=== PATIENT | male | born 1985 | race Caucasian/White ===

== ENCOUNTER 2020-02-25 21:56 | Emergency (ER) | payer OTHER, SELFPAY ==
[2020-02-25 22:02] VITALS: PULSE 83; RESP 16; TEMP 36.9; O2SAT 98; BMI 24.7
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
--- NOTE | 2020-02-25 22:56 | PC.NURSE ---
pt was seen by , was ready for discharge and then danis screaming and yelling get me the fucking doctor . pt was approached by staff and continued to yell and swear and then attempted to remove a rack from the wall. security to bedside to escort pt from ER. Pt swearing on exit
== END 2020-02-25 23:00 | disposition home or self-care (01) ==
LOC: HO.ED 22:54
PROVIDERS: Emergency Provider Internal Medicine
DX: K64.4 Residual hemorrhoidal skin tags (principal)
CPT/HCPCS: 99283

== ENCOUNTER 2023-02-01 22:52 | Emergency (ER) | payer MEDICAID, SELFPAY ==
[2023-02-01 23:02] VITALS: BMI 22.2
--- NOTE | 2023-02-01 23:04 | ED_ITS ---
HPI - Overdose General Chief Complaint: Overdose Stated Complaint: drug use Time Seen by Provider: 02/01/23 22:57 History of Present Illness HPI Narrative: Patient is a 37-year-old male with a history polysubstance abuse. Admits to using PCP tonight. Subsequently family called the ambulance and patient was sent to the emergency department for further evaluation. He denies any suicidal homicidal ideation he has no complaints. Related Data Previous Rx's Medication Instructions Recorded hydrocortisone acetate 25 mg 25 mg [place] BID #12 ea 02/25/20 rectal suppository (Anusol-HC) Allergies Allergy/AdvReac Type Severity Reaction Status Date / Time No Known Allergies Allergy Unverified 12/06/22 15:06 [No Known Allergies*] Review of Systems Review of Systems: Positive PCP use [facility] Past Medical History Attestation statement: The following information was validated with the patient. Social History Social History Use of substances other than those prescribed or required for medical reasons: Yes Substance Use Type: Amphetamines Substance Use Frequency: Socially Advance Directives: No Advance Directives Information Provided: No Physical Exam Vital Signs: Vital Signs: Last Vital Signs Temp 98.2 F 02/01/23 23:05 Pulse 110 H 02/01/23 23:05 Resp 17 02/01/23 23:05 BP 129/87 02/01/23 23:05 Pulse Ox 97 02/01/23 23:05 O2 Del Method Room Air 02/01/23 23:05 BMI result Body Mass Index 22.2 Appearance: Alert. Oriented X3. No acute distress. Eyes: Pupils equal, round and reactive to light. ENT: Pharynx normal. Neck: Normal inspection. Neck supple. No lymph nodes noted. No crepitus CVS: Normal heart rate and rhythm. Pulses normal. Normal S1 and S2 Respiratory: No respiratory distress. Breath sounds normal. No Wheezing. No rales Abdomen: Soft and nontender. No rigidity. No distention. good BS x4 Skin: Skin warm and dry. Normal skin color. Normal skin turgor. Extremities: No lower extremity edema. Neurovascular intact to all extremities. No Lacerations. No Rash Neuro: Oriented X 3. No motor deficit. No sensory deficit. Moving all extermities. No slurred speech Medical Decision Making Medical Decision Making MDM Narrative: Patient admits to using PCP. Monitor in the emergency department for about 2 hours. He was awake alert when he came in. He has is still in no distress. Had a full meal here in the emergency department. His sugar was 166 is no evidence of hypoglycemia. Patient denies suicidal homicidal ideation. Use of drugs for recreational reasons. Wants to go home. Wants to leave. He is awake alert is understand his situation will discharge patient home. Explained the patient the need to stop using PCP. Differential Diagnosis Differential Diagnoses: The differential diagnosis associated with the presentation includes Polysubstance abuse Lab Data [facility] Lab Attestation statement: I reviewed the patient's lab results. Labs: Lab Results 02/01/23 Range/Units 23:03 POC Glucose 166 H (60-115) mg/dL Prescription Management No additional medication was given Chronic Conditions Polysubstance abuse Social Determinants Patient?s care significantly limited by Social Determinants of Health including: Alcoholism and drug addiction in family and Problems related to primary support group Discharge Plan Discharge Clinical Impression: Polysubstance (excluding opioids) dependence Patient Disposition: Home, Self-Care Instructions: Polysubstance Abuse (ED) Prescriptions: No Action hydrocortisone acetate [Anusol-HC] 25 mg suppository 25 mg [place] BID Qty: 12 0RF Referrals: Physician,Unknown J [Primary Care Provider] - (Please follow-up with your physician. Please stop using recreational drugs.)
[2023-02-01 23:05] VITALS: BP 129/87; PULSE 110; RESP 17; TEMP 36.8; O2SAT 97
[2023-02-01 23:07] LABS: Glucose, Whole Blood 166 mg/dL (60-115)
--- NOTE | 2023-02-01 23:15 | PC.NURSE ---
pt calm cooperative at this time and A/OX4 . Provider at bedside and state that if his mom can potato picker he can be discharged. Security at bedside, for search.
--- NOTE | 2023-02-01 23:35 | PC.NURSE ---
belongings in [place]
--- NOTE | 2023-02-02 00:20 | PC.NURSE ---
Pt calm and cooperative, eating a sandwich at this time
== END 2023-02-02 00:38 | disposition home or self-care (01) ==
PROVIDERS: Emergency Provider Emergency Medicine Emergency Medical Services
DX: T40.991A Poisoning by other psychodysleptics [hallucinogens], accidental (unintentional), initial encounter (principal); Y92.9 Unspecified place or not applicable; F16.20 Hallucinogen dependence, uncomplicated; F19.20 Other psychoactive substance dependence, uncomplicated
CPT/HCPCS: 82947; 99284

== ENCOUNTER 2023-04-10 02:37 | Emergency (ER) | payer MEDICAID, SELFPAY ==
[2023-04-10 03:16] VITALS: BP 169/102; PULSE 74; RESP 16; TEMP 37.2; O2SAT 98
--- OUTSIDE RECORDS SUMMARY | 2023-04-10 06:01 | XMS_ITS | Continuity of Care Document ---
Author Name Unknown Organization [facility] Teri Marie [facility] Address [address] [place] [address]- Care Team Providers Care Human Resources Safety Manager Name Role Phone Not on Staff, PCP Primary Care Physician Unavail able [id number] Date(s): 05/03/20 - 06/02/20 [facility] Teri Marie [facility] [address] [place] [address]- Allergies, Adverse Reactions, Alerts Substance Reaction Severity Status NKA Active Medications Protonix 40 mg oral delayed release tablet 1 tablet = 40 mg, By Mouth, Daily, # 30 tablet, 0 Refills, Maintenance, 04/07/20 9:46:00 EST, EC Tablet Start Date: 04/07/20 Status: Ordered Problem List Condition Effective Dates Status Health Status Inform ant Bowel perforation(Confirmed) Active Social History Social History Type Response Smoking Status Never (less than 100 in lifetime) entered on: 04/05/20 Sex
--- OUTSIDE RECORDS SUMMARY | 2023-04-10 06:01 | XMS_ITS | Continuity of Care Document ---
Author Name Unknown Organization [facility] Address [address] [place] [address]- Care Team Providers Care Training And Development Professional Name Role Phone Not on Staff, PCP Primary Care Physician Unavail able [place] [facility] [place] 03/19[place] - 03/20/[address] [address]- Encounter Diagnosis Constipated(Final) - 03/19/21 Ileus(Final) - 03/19/21 Discharge Disposition: A-D/C [facility], [facility], or [facility] Attending Physician: Brittany Strickland MD, Brianna Admitting Physician: Alexis DURANT, Anastasia Referring Physician: Not on Staff, Referring MD Allergies, Adverse Reactions, Alerts No Known Allergies Immunizations Not Given Vaccine Date Status Refusal Reason influenza virus vaccine, inactivated 03/20/21 Not Given Patient Refuses Medications acetaminophen 325 mg oral tablet 650 mg, By Mouth, Every 4 hours, PRN, Refills 0, Maintenance, Pain , Mild, 03/14/21 10:51:00 EST, Partial fill upon patient request if the prescription is for a schedule II opioid drug. Start Date: 03/14/21 Status: Ordered buprenorphine-naloxone 4 mg-1 mg sublingual film 2 film, Sublingual, Daily, 0 Refills, Maintenance, 03/20/21 9:58:00 EST, Film, Partial fill upon patient request if the prescription is for a schedule II opioid drug. Start Date: 03/20/21 Status: Ordered polyethylene glycol 3350 oral powder for reconstitution = 17 Gm, By Mouth, Daily, for 7 days, dissolve in water before taking, # 119 Gm, 0 Refills, Acute 03/27/21 9:57:00 EST, 03/20/21 9:57:00 EST, REC Powder, [facility], Partial fill upon patient request if the prescription is for a schedule... Start Date: 03/20/21 Stop Date: 03/27/21 Status: Ordered Senna 8.6 mg oral tablet 17.2 mg, 2, tablet, By Mouth, Daily, for 7 days, # 14 tablet, Refills 0, Tot. Refills 0, Acute, 03/27/21 9:57:00 EST, 03/20/21 9:57:00 EST, Route to Pharmacy Electronically, [facility] Tablet, Partial fill upon patient request if the pres... Start Date: 03/20/21 Stop Date: 03/27/21 Status: Ordered Problem List Condition Effective Dates Status Health Status Inform ant Bowel perforation(Confirmed) Active Polysubstance abuse(Confirmed) Active SBO - Small bowel obstruction(Confirmed) Active Procedures Procedure Date Related Diagnosis Body Site Status Laparoscopy, surgical, enter olysis (freeing of intestinal adhesion) (separate procedure) 03/13/21 Completed Enterectomy, resection of sm all intestine; single resection and anastomosis 02/23/12 Completed Results Radiology Reports * Exam Date Time Procedure Performing Provider Status 03/20/21 9:52 AM Abdomen AP Delvis Downing; Chucho (Eva ified) Notes: (Abdomen AP) Reason For Exam: Distention;r/o SBO RESULT: XR Abdomen AP XR Abdomen AP supine view INDICATION/CLINICAL QUESTION: Abdominal distention COMPARISON: Yesterday an several prior FINDINGS: Moderate stool retention but otherwise normal bowel gas pattern. No evidence of obstruction. No evidence of pneumoperitoneum. Multiple surgical staple lines left mid abdomen grossly unchanged. Normal bones. IMPRESSION: Moderate stool retention but otherwise normal. No evidence of obstruction. WSN: [id number] Ordering Physician: Brianna Marion Dictated By: Chuck Dobbs MD Dictated Date/Time: 03/20/21 2:08 pm Reviewed By: Chuck Dobbs MD Signed By: Chuck Dobbs MD Signed Date/Time: 03/20/21 2:08 pm Transcribed By: RONNIE Transcribed Date/Time: 03/20/21 2:06 pm * Exam Date Time Procedure Performing Provider Status 03/19/21 12:15 PM Abdomen AP Sveta Roldan; Chucho (V erified) Notes: (Abdomen AP) Reason For Exam: SBo- ileus;Nausea/Vomiting RESULT: XR Abdomen AP XR Abdomen AP 1 view INDICATION/CLINICAL QUESTION: Reason: Nausea Vomiting; SBo- ileus; Clinical Question(s): Obstruction COMPARISON: 03/12/2021 FINDINGS: Mildly distended air-filled loops of small bowel in the left upper quadrant. These loops also show mild fold/wall thickening. Air is seen in the more distal small bowel and in the colon. No evidence of pneumoperitoneum. No organomegaly, masses or calcifications. No acute bone findings. IMPRESSION: Mildly distended loops of proximal small bowel, with mild fold/wall thickening. Findings could reflect ileus with enteritis, or early bowel obstruction. Consider further evaluation with contrast-enhanced CT of the abdomen and pelvis. WSN: [id number] Ordering Physician: Brianna Marion Dictated By: Kristina Carrillo MD Dictated Date/Time: 03/19/21 2:17 pm Reviewed By: Kristina Carrillo MD Signed By: Kristina Carrillo MD Signed Date/Time: 03/19/21 2:17 pm Transcribed By: RONNIE Transcribed Date/Time: 03/19/21 2:13 pm Vital Signs Most recent to oldest [Reference Range]: 1 2 3 Height 186 cm (03/20/21 4:39 PM) 186 cm (03/20/21 11:15 AM) 186 cm (03/20/21 8:21 AM) Weight 69 kg (03/19/21 1:20 AM) 69 kg (03/18/21 11:48 PM) 69 kg (03/18/21 10:41 PM) Oxygen Saturation [94-100 %] 98 % (03/20/21 4:39 PM) 98 % (03/20/21 11:15 AM) 100 % (03/20/21 8:21 AM) Pulse Rate [55-90 bpm] 75 bpm (03/20/21 4:39 PM) 72 bpm (03/20/21 11:15 AM) 74 bpm (03/20/21 8:21 AM) Body Mass Index [18.5-24.99] 19.94 (03/19/21 1:20 AM) 19.94 (03/18/21 11:48 PM) 19.94 (03/18/21 10:39 PM) Blood Pressure [90-138/55-84 mm Hg] 142/91mm Hg *H* (03/20/21 4:39 PM) 140/93mm Hg *H* (03/20/21 11:15 AM) 127/86mm Hg (03/20/21 8:21 AM) Respiratory Rate [16-30 br/min] 18 br/min (03/20/21 4:39 PM) 22 br/min (03/20/21 11:15 AM) 13 br/min *L* (03/20/21 8:21 AM) Temperature [96.8-100.4 DegF] 98.2 DegF (03/20/21 4:39 PM) 98.2 DegF (03/20/21 11:15 AM) 97.7 DegF (03/20/21 8:21 AM) Mode of Delivery (Oxygen) Room air (03/20/21 4:39 PM) Room air (03/20/21 11:15 AM) Room air (03/20/21 8:21 AM) Blood pressure sites Arm, left (03/20/21 4:39 PM) Arm, left (03/20/21 11:15 AM) Arm, right (03/20/21 8:21 AM) Temperature Route Axillary (03/20/21 4:39 PM) Axillary (03/20/21 11:15 AM) Oral (03/20/21 8:21 AM) Dry Weight 69 kg (03/19/21 1:20 AM) 69 kg (03/18/21 11:48 PM) 69 kg (03/18/21 10:41 PM) Weight Obtained Via Patient/family state d (03/18/21 10:39 PM) Dry Weight Obtained Via Patient/family s tated (03/18/21 10:39 PM) Social History Social History Type Response Smoking Status Never (less than 100 in lifetime) entered on: 03/11/21 Sex
--- OUTSIDE RECORDS SUMMARY | 2023-04-10 06:01 | XMS_ITS | Continuity of Care Document ---
Author Name Unknown Organization [facility] Address Unknown Care Team Providers Care Mechanic Welder Truck Driver Name Role Phone Not on Staff, PCP Primary Care Physician Unavail able Encounter [facility] [place] Date(s): 03/24/21 - 04/23/21 [facility] Attending Physician: Yamil Renteria Admitting Physician: Yamil Renteria Referring Physician: Yamil Renteria Allergies, Adverse Reactions, Alerts No Known Allergies [...] opioid drug. Start Date: 03/20/21 Status: Ordered Problem List Condition Effective Dates Status Health Status Inform ant Bowel perforation(Confirmed) Active Polysubstance abuse(Confirmed) Active SBO - Small bowel obstruction(Confirmed) Active Social History Social History Type Response Smoking Status Never (less than 100 in lifetime) entered on: 03/11/21 Sex
--- OUTSIDE RECORDS SUMMARY | 2023-04-10 06:01 | XMS_ITS | Continuity of Care Document ---
Author Name Unknown Organization [facility] Address [address] [place] [address]- Care Team Providers Care Training And Development Director Name Role Phone Not on Staff, PCP Primary Care Physician Unavail able [id number] Date(s): 04/05/20 - 04/07/[address] [address] Encounter Diagnosis Acute gastroenteritis(Final) - 04/05/20 Discharge Disposition: A-D/C Longterm, [facility], or [facility] Attending Physician: Ivone Juarez MD Admitting Physician: Alexis DURANT, Anastasia Referring Physician: Not on Staff, Referring MD Allergies, Adverse Reactions, Alerts Substance Reaction Severity Status NKA Active Medications MorPHINE Inj 2 mg, Injection, IV Push Slowly, Every 4 hours, PRN for Pain , Severe, Routine, 04/06/20 3:01:00 EST Start Date: 04/06/20 Stop Date: 04/07/20 Status: Discontinued Protonix 40 mg oral delayed release tablet 1 tablet = 40 mg, By Mouth, Daily, # 30 tablet, 0 Refills, Maintenance, 04/07/20 9:46:00 EST, EC Tablet Start Date: 04/07/20 Status: Ordered Problem List Condition Effective Dates Status Health Status Inform ant Bowel perforation(Confirmed) Active Vital Signs Most recent to oldest [Reference Range]: 1 2 3 Height 186 cm (04/06/20 9:21 PM) 186 cm (04/06/20 10:25 AM) 186 cm (04/06/20 8:07 AM) Weight 71.8 kg (04/06/20 10:25 AM) 70 kg (04/06/20 7:22 AM) 70 kg (04/06/20 3:10 AM) Oxygen Saturation [94-100 %] 99 % (04/07/20 5:28 AM) 98 % (04/06/20 9:21 PM) 100 % (04/06/20 10:25 AM) Pulse Rate [55-90 bpm] 54 bpm *L* (04/07/20 5:28 AM) 58 bpm 1 (04/06/20 9:21 PM) 60 bpm (04/06/20 10:25 AM) Body Mass Index [18.5-24.99] 20.75 (04/06/20 10:25 AM) 20.23 (04/06/20 7:22 AM) 20.23 (04/06/20 3:10 AM) Blood Pressure [90-138/55-84 mm Hg] 115/65mm Hg (04/07/20 5:28 AM) 119/73mm Hg (04/06/20 9:21 PM) 135/79mm Hg (04/06/20 10:25 AM) Respiratory Rate [16-30 br/min] 20 br/min (04/07/20 10:33 AM) 20 br/min (04/07/20 5:28 AM) 16 br/min (04/07/20 4:30 AM) Temperature [96.8-100.4 DegF] 98.0 DegF (04/07/20 5:28 AM) 98.5 DegF (04/06/20 9:21 PM) 98.9 DegF (04/06/20 10:25 AM) Mode of Delivery (Oxygen) Room air (04/07/20 5:28 AM) Room air (04/06/20 9:21 PM) Room air (04/06/20 8:07 AM) Blood pressure sites Arm, right (04/07/20 5:28 AM) Arm, right (04/06/20 9:21 PM) Arm, left (04/06/20 10:25 AM) Temperature Route Oral (04/07/20 5:28 AM) Oral (04/06/20 9:21 PM) Oral (04/06/20 10:25 AM) Dry Weight 71.8 kg (04/06/20 10:25 AM) 70 kg (04/06/20 7:22 AM) 70 kg (04/06/20 3:10 AM) 1Result Comment: rn aware Social History Social History Type Response Smoking Status Never (less than 100 in lifetime) entered on: 04/05/20 Sex
--- OUTSIDE RECORDS SUMMARY | 2023-04-10 06:01 | XMS_ITS | Continuity of Care Document ---
Author Name Unknown Organization [facility] Address [address] [place] [address]- Care Team Providers Care Travelers' Aid Worker Name Role Phone Not on Staff, PCP Primary Care Physician Unavail able [place] [facility] 03/04/[address] [address]- Encounter Diagnosis Altered mental status(Final) - 03/04/21 Opiate abuse, continuous(Final) - 03/04/21 COVID-19(Final) - 03/04/21 Vomiting(Final) - 03/04/21 Opiate withdrawal(Final) - 03/04/21 Leukocytosis(Final) - 03/04/21 Discharge Disposition: A-D/C Retirement, Retirement, or [facility] Fac Attending Physician: Gregorio Chatman DO Admitting Physician: Gregorio Chatman DO Referring Physician: Not on Staff, Referring MD Allergies, Adverse Reactions, Alerts No Known Allergies Medications Protonix 40 mg oral delayed release tablet 1 tablet = 40 mg, By Mouth, Daily, # 30 tablet, 0 Refills, Maintenance, 04/07/20 9:46:00 EST, EC Tablet Start Date: 04/07/20 Status: Ordered Problem List Condition Effective Dates Status Health Status Inform ant Bowel perforation(Confirmed) Active Results Radiology Reports * Exam Date Time Procedure Performing Provider Status 03/03/21 11:41 PM Chest Single Frontal View Nuvia Ledezma; Chucho (Verified) Notes: (Chest Single Frontal View) Reason For Exam: Pain;Other: RESULT: Chest Single Frontal View Chest Single Frontal View INDICATION: Ingested unknown amount of opiates. Seized and became unresponsive COMPARISON: 02/23/2012 FINDINGS: LINES AND TUBES: None. LUNGS AND PLEURA: Questionable diffuse bilateral lung haziness. No pleural effusion. No pneumothorax. HEART, MEDIASTINUM AND REJI: Heart is normal in size. Normal upper mediastinal and hilar contour. BONES AND SOFT TISSUES: No acute abnormality. IMPRESSION: Questionable diffuse lung haziness, which may be artifactual/technical, although in this setting, aspiration pneumonia/pneumonitis is not excluded. I have personally reviewed the images and I agree with this report. WSN: [id number] Ordering Physician: Gregorio Chatman Dictated By: Bruce Jamil DO Dictated Date/Time: 03/03/21 11:48 p Reviewed By: Krishna Ames MD Signed By: Krishna Ames MD Signed Date/Time: 03/03/21 11:53 pm Transcribed By: RONNIE Transcribed Date/Time: 03/03/21 11:47 pm * Exam Date Time Procedure Performing Provider Status 03/03/21 11:41 PM Pelvis 1 or 2 Views Christian Ledezma; Chucho (Verified) Notes: (Pelvis 1 or 2 Views) Reason For Exam: with Pain;Trauma RESULT: Pelvis 1 or 2 Views Pelvis 1 View INDICATION: Questionable trauma COMPARISON: 04/05/2020 FINDINGS: Overlying bandage slightly limits evaluation of upper pelvis detail. There is no fracture or dislocation. Normal hips and sacroiliac joints. The previously seen bilateral L5 spondylolysis is not well visualized on this examination. Unremarkable soft tissues. IMPRESSION: No acute osseous abnormality. I have personally reviewed the images and I agree with this report. WSN: [id number] Ordering Physician: Gregorio Chatman Dictated By: Bruce Jamil DO Dictated Date/Time: 03/03/21 11:48 p Reviewed By: Krishna Ames MD Signed By: Krishna Ames MD Signed Date/Time: 03/03/21 11:53 pm Transcribed By: RONNIE Transcribed Date/Time: 03/03/21 11:45 pm Vital Signs Most recent to oldest [Reference Range]: 1 2 3 Height 185 cm (03/04/21 1:06 AM) 185 cm (03/04/21 12:02 AM) 185 cm (03/03/21 11:40 PM) Weight 76 kg (03/04/21 1:06 AM) 76 kg (03/04/21 12:02 AM) 76 kg (03/03/21 11:40 PM) Oxygen Saturation [94-100 %] 98 % (03/04/21 1:06 AM) 100 % (03/04/21 12:02 AM) 98 % (03/03/21 11:40 PM) Pulse Rate [55-90 bpm] 80 bpm (03/04/21 1:06 AM) 84 bpm (03/04/21 12:02 AM) 82 bpm (03/03/21 11:40 PM) Body Mass Index [18.5-24.99] 22.21 (03/04/21 1:06 AM) 22.21 (03/04/21 12:02 AM) 22.21 (03/03/21 11:40 PM) Blood Pressure [90-138/55-84 mm Hg] 133/91mm Hg (03/04/21 1:06 AM) 147/106mm Hg *H* (03/04/21 12:02 AM) 159/106mm Hg *H* (03/03/21 11:40 PM) Respiratory Rate [16-30 br/min] 19 br/min (03/04/21 1:06 AM) 19 br/min (03/04/21 12:02 AM) 19 br/min (03/03/21 11:40 PM) Temperature [96.8-100.4 DegF] 98.3 DegF (03/03/21 10:45 PM) Mode of Delivery (Oxygen) Room air (03/04/21 1:06 AM) Room air (03/04/21 12:02 AM) Room air (03/03/21 11:40 PM) Blood pressure sites Arm, right (03/03/21 10:45 PM) Temperature Route Axillary (03/03/21 10:45 PM) Dry Weight 76 kg (03/04/21 1:06 AM) 76 kg (03/04/21 12:02 AM) 76 kg (03/03/21 11:40 PM) Social History Social History Type Response Smoking Status Never (less than 100 in lifetime) entered on: 04/05/20 Sex
--- OUTSIDE RECORDS SUMMARY | 2023-04-10 06:01 | XMS_ITS | Continuity of Care Document ---
Author Name Unknown Organization [facility] em Address Unknown Care Team Providers Care Wind Turbine Technician Name Role Phone Not on Staff, PCP Primary Care Physician Unavail able Encounter [facility] [place] Date(s): 03/24/21 - 03/31/21 [facility] Attending Physician: Alexander Yanez MD Admitting Physician: Alexander Yanez MD Referring Physician: Not on Staff, Referring MD [...] Active SBO - Small bowel obstruction(Confirmed) Active Vital Signs Most recent to oldest [Reference Range]: 1 Height 186 cm (03/24/21 10:12 AM) Oxygen Saturation [94-100 %] 98 % (03/24/21 10:12 AM) Pulse Rate [55-90 bpm] 76 bpm (03/24/21 10:12 AM) Blood Pressure [90-138/55-84 mm Hg] 138/ 72mm Hg (03/24/21 10:12 AM) Respiratory Rate [16-30 br/min] 16 br/mi n (03/24/21 10:12 AM) Blood pressure sites Arm, right (03/24/21 10:12 AM) Social History Social History Type Response Smoking Status Never (less than 100 in lifetime) entered on: 03/11/21 Sex
--- OUTSIDE RECORDS SUMMARY | 2023-04-10 06:02 | XMS_ITS | Continuity of Care Document ---
Author Name Unknown Organization [facility] Address [address] [place] [address]- Care Team Providers Care Field Representative Name Role Phone Lars DURANT, Adela Calvo Primary Care Physician [phone] Encounter [facility] [place] Date(s): 03/10/21 - 03/14/[address] [address]- Encounter Diagnosis COVID-19(Final) - 03/10/21 Discharge Disposition: A-D/C Home Attending Physician: Fanta Worthington MD Admitting Physician: Bill Mayorga Referring Physician: Not on Staff, Referring MD Allergies, Adverse Reactions, Alerts No Known Allergies Medications acetaminophen 325 mg oral tablet 650 mg, By Mouth, Every 4 hours, PRN, Refills 0, Maintenance, Pain , Mild, 03/14/21 10:51:00 EST, Partial fill upon patient request if the prescription is for a schedule II opioid drug. Start Date: 03/14/21 Status: Ordered Dilaudid Inj 0.5 mg, Injection, IV Push Slowly, Every 4 hours, PRN for Pain , Severe, Routine, 03/10/21 12:30:00EST Start Date: 03/10/21 Stop Date: 03/14/21 Status: Discontinued Problem List Condition Effective Dates Status Health Status Inform ant Bowel perforation(Confirmed) Active Results Radiology Reports * Exam Date Time Procedure Performing Provider Status 03/12/21 9:30 AM Abdomen AP Meaghan Cabrera; Chucho (Eva ified) Notes: (Abdomen AP) Reason For Exam: Nausea/Vomiting RESULT: XR Abdomen AP XR Abdomen AP 1 view INDICATION/CLINICAL QUESTION: Reason: Nausea Vomiting; Clinical Question(s): Obstruction COMPARISON: None FINDINGS: Multiple dilated small bowel loops, measuring up to 3.7 cm, mildly decreased from prior study (previously measuring up to 4.1 cm). Moderate amount of stool within the colon. Gas is noted within the rectum. Suture line along the left mid abdomen. No evidence of pneumoperitoneum. No organomegaly, masses or calcifications. No acute bone findings. Enteric tube terminates within the stomach. IMPRESSION: 1. Multiple dilated small bowel loops, measuring up to 3.7 cm, mildly decreased from the prior study. 2. No large free air. WSN: [id number] Ordering Physician: Han Gill Dictated By: Etienne Castillo MD Dictated Date/Time: 03/12/21 12:59 p Reviewed By: Etienne Castillo MD Signed By: Etienne Castillo MD Signed Date/Time: 03/12/21 12:59 pm Transcribed By: RONNIE Transcribed Date/Time: 03/12/21 12:55 pm * Exam Date Time Procedure Performing Provider Status 03/11/21 10:42 PM Chest Portable Burke Bocanegra ut (Verified) Notes: (Chest Portable) Reason For Exam: Tube Placement RESULT: Chest Portable Chest Portable Reason: Tube Placement; Clinical Question(s): Tube Placement COMPARISON: 03/10/2021 FINDINGS: LINES AND TUBES: Enteric tube terminates in the left upper quadrant, likely in the stomach. LUNGS AND PLEURA: Clear lungs. Normal pulmonary vascularity. No pleural effusion. No pneumothorax. HEART, MEDIASTINUM AND REJI: Heart is normal in size. Normal upper mediastinal and hilar contour. BONES AND SOFT TISSUES: No acute abnormality. IMPRESSION: No acute abnormality. WSN: [id number] Ordering Physician: Tushar Singh Dictated By: Antonio Serrano MD Dictated Date/Time: 03/11/21 10:48 p Reviewed By: Antonio Serrano MD Signed By: Antonio Serrano MD Signed Date/Time: 03/11/21 10:48 pm Transcribed By: RONNIE Transcribed Date/Time: 03/11/21 10:47 pm * Exam Date Time Procedure Performing Provider Status 03/11/21 9:23 AM Abdomen AP Deborah , Meaghan; Auth (Eva ified) Notes: (Abdomen AP) Reason For Exam: Distention;Small bowel protocol, 24hr KUB to look for contrast in thecolon. RESULT: XR Abdomen AP XR Abdomen AP 1 view INDICATION/CLINICAL QUESTION: Reason: Distention; Small bowel protocol, 24hr KUB to look for contrast in the colon.; Clinical Question(s): Obstruction; Special Instructions: This image is to establish no residual contrast in pt, per nurse to be done KRISTY COMPARISON: CT of the abdomen and pelvis dated March 10, 2021, and abdominal radiograph dated March 10, 2021. FINDINGS: Slight interval increase in gaseous distention of a loop of small bowel in the right upper quadrant, while remaining small bowel loops in the central abdomen that were previously distended appear less significantly distended. A suture line is noted in the left midabdomen. Mild to moderate residual stool within the colon including air in the rectum. Oral contrast from the prior CT is not well visualized, without definite contrast opacification of the colon. No supine evidence of free air. No abnormal mass or calcification. No acute osseous finding. Distal tip of a new enteric tube is noted in the left upper quadrant. IMPRESSION: 1. Previously administered oral contrast is not clearly visualized, without definite contrast in the colon. 2. Mild to moderate gaseous distention of small bowel loops, slightly increased in the right upper quadrant and slightly decreased in the central abdomen. No supine evidence of pneumoperitoneum. WSN: [id number] Ordering Physician: Maxi Trujillo Dictated By: Max Hilliard MD Dictated Date/Time: 03/11/21 2:30 pm Reviewed By: Max Hilliard MD Signed By: Max Hilliard MD Signed Date/Time: 03/11/21 2:30 pm Transcribed By: RONNIE Transcribed Date/Time: 03/11/21 2:26 pm * Exam Date Time Procedure Performing Provider Status 03/10/21 12:25 PM Abdomen AP Randi Cabrera; Modified Notes: (Abdomen AP) Reason For Exam: Pain ADDENDUM: XR Abdomen AP Contrast administered for earlier CT is seen in left mid abdominal bowel loops. There is no contrast seen in the right lower quadrant within the expected location of the cecum or distal ileum. Findings are again consistent with small bowel obstruction. WSN: [id number] Ordering Physician: Vane Roche Dictated By: Dewey Burton MD Dictated Date/Time: 03/10/21 1:05 pm Reviewed By: Dewey Burton MD Signed By: Dewey Burton MD Signed Date/Time: 03/10/21 1:05 pm Transcribed By: RONNIE Transcribed Date/Time: 03/10/21 1:03 pm RESULT: XR Abdomen AP XR Abdomen AP 1 view INDICATION/CLINICAL QUESTION: Reason: Pain; Clinical Question(s): Obstruction; Special Instructions: timed study please obtain at 1200 COMPARISON: None FINDINGS: NG tube tip and side-port in stomach. There is gaseous distention of small bowel loops. No evidence of pneumoperitoneum. No organomegaly, masses or calcifications. No acute bone findings. IMPRESSION: Adequate positioning of NG tube. WSN: [id number] Ordering Physician: Vane Roche Dictated By: Dewey Burton MD Dictated Date/Time: 03/10/21 12:55 p Reviewed By: Dewey Burton MD Signed By: Dewey Burton MD Signed Date/Time: 03/10/21 12:55 pm Transcribed By: RONNIE Transcribed Date/Time: 03/10/21 12:48 pm * Exam Date Time Procedure Performing Provider Status 03/10/21 4:12 AM Chest Portable Deloris Malik; Auth (Verified) Notes: (Chest Portable) Reason For Exam: Line/Tube Placement;Other: RESULT: Chest Portable Chest Portable HX OF PRESENT ILLNESS: pt states he has had abdominal pain and vomiting for the last 3 days. COVID positive.; Reason: Line Tube Placement; Clinical Question(s): Tube Placement; Confirm Position, Assess for Complication / Tube Placement COMPARISON: 03/03/2021 FINDINGS: LINES AND TUBES: Enteric tube tip and side-port project in the stomach. LUNGS AND PLEURA: Clear lungs. Normal pulmonary vascularity. No pleural effusion. No pneumothorax. HEART, MEDIASTINUM AND REJI: Heart is normal in size. Normal mediastinal and hilar contour. BONES AND SOFT TISSUES: No acute abnormality. IMPRESSION: No evidence of acute abnormality. WSN: [id number] Ordering Physician: Chuck Garner Dictated By: Dewey Canada MD Dictated Date/Time: 03/10/21 7:40 am Reviewed By: Dewey Canada MD Signed By: Dewey Canada MD Signed Date/Time: 03/10/21 7:40 am Transcribed By: RONNIE Transcribed Date/Time: 03/10/21 7:39 am Vital Signs Most recent to oldest [Reference Range]: 1 2 3 Height 185.5 cm (03/14/21 3:40 AM) 185.5 cm (03/14/21 12:01 AM) 185.5 cm (03/13/21 7:26 PM) Weight 78.4 kg (03/13/21 10:30 AM) 78.4 kg (03/10/21 10:30 AM) 72.75 kg (03/10/21 7:18 AM) Oxygen Saturation [94-100 %] 97 % (03/14/21 3:40 AM) 100 % (03/14/21 12:01 AM) 97 % (03/13/21 7:26 PM) Pulse Rate [55-90 bpm] 77 bpm (03/14/21 3:40 AM) 88 bpm (03/14/21 12:01 AM) 78 bpm (03/13/21 7:26 PM) Body Mass Index [18.5-24.99] 22.78 (03/13/21 10:30 AM) 22.78 (03/10/21 10:30 AM) 21.14 (03/10/21 7:18 AM) Blood Pressure [90-138/55-84 mm Hg] 121/79mm Hg (03/14/21 3:40 AM) 127/78mm Hg (03/14/21 12:01 AM) 128/76mm Hg (03/13/21 7:26 PM) Respiratory Rate [16-30 br/min] 20 br/min (03/14/21 7:34 AM) 18 br/min (03/14/21 7:04 AM) 16 br/min (03/14/21 3:40 AM) Temperature [96.8-100.4 DegF] 98.2 DegF (03/14/21 3:40 AM) 98.6 DegF (03/14/21 12:01 AM) 98.6 DegF (03/13/21 7:26 PM) Mode of Delivery (Oxygen) Room air (03/14/21 3:40 AM) Room air (03/14/21 12:01 AM) Room air (03/13/21 7:26 PM) Blood pressure sites Arm, right (03/14/21 3:40 AM) Arm, right (03/14/21 12:01 AM) Arm, right (03/13/21 7:26 PM) Temperature Route Oral (03/14/21 3:40 AM) Oral (03/14/21 12:01 AM) Oral (03/13/21 7:26 PM) Dry Weight 78.4 kg (03/10/21 10:30 AM) 72.75 kg (03/10/21 7:18 AM) 72.75 kg (03/10/21 5:53 AM) Weight Obtained Via Bed scale (03/10/21 10:30 AM) Social History Social History Type Response Smoking Status Never (less than 100 in lifetime) entered on: 03/11/21 Sex
--- OUTSIDE RECORDS SUMMARY | 2023-04-10 06:02 | XMS_ITS | Continuity of Care Document ---
Author Name Unknown Organization [facility] Address [address] [place] [address]- Care Team Providers Care Software Test Engineer Name Role Phone Not on Staff, PCP Primary Care Physician Unavail able Encounter [facility] Date(s): 05/04/20 - 05/04/[address] [id number] Discharge Disposition: A-D/C Home Attending Physician: Xena Hayes MD Admitting Physician: Xena Hayes MD Referring Physician: Xena Hayes MD Allergies, Adverse Reactions, Alerts Substance Reaction [...] Range]: 1 2 3 Height 186 cm (05/04/20 2:24 PM) Oxygen Saturation [94-100 %] 100 % (05/04/20 3:17 PM) 99 % (05/04/20 3:10 PM) 98 % (05/04/20 2:53 PM) Pulse Rate [55-90 bpm] 62 bpm (05/04/20 3:17 PM) 69 bpm (05/04/20 3:10 PM) 80 bpm (05/04/20 2:53 PM) Blood Pressure [90-138/55-84 mm Hg] 104/75mm Hg (05/04/20 3:17 PM) 110/73mm Hg (05/04/20 3:10 PM) 119/71mm Hg (05/04/20 2:53 PM) Respiratory Rate [16-30 br/min] 15 br/min *L* (05/04/20 3:17 PM) 15 br/min *L* (05/04/20 3:10 PM) 21 br/min (05/04/20 2:53 PM) Temperature [96.8-100.4 DegF] 97.5 DegF (05/04/20 2:53 PM) 97.5 DegF (05/04/20 2:24 PM) Mode of Delivery (Oxygen) Room air (05/04/20 3:10 PM) Room air (05/04/20 2:53 PM) Room air (05/04/20 2:24 PM) Blood pressure sites Arm, left (05/04/20 3:10 PM) Arm, left (05/04/20 2:53 PM) Arm, left (05/04/20 2:24 PM) Temperature Route Temporal (05/04/20 2:53 PM) Temporal (05/04/20 2:24 PM) Dry Weight 77.5 kg (05/04/20 2:24 PM) Social History Social History Type Response Smoking Status Never (less than 100 in lifetime) entered on: 04/05/20 Sex
[2023-04-10 06:04] LABS: MANUAL DIFF FLAG NO
[2023-04-10 06:06] LABS: Basophils Absolute Auto 0.1 X10*3/uL (0.0-0.2); Basophils Percent Auto 0.4 % (0-2); Eosinophils Absolute Auto 0.4 X10*3/uL (0.0-0.4); Eosinophils Percent Auto 3.3 % (0-4); Hematocrit 43.2 % (42.0-52.0); Hemoglobin 14.6 g/dl (14.0-18.0); Imm Gran Abs Auto 0.04 X10*3/uL (0.00-0.03); Imm Gran Pct Auto 0.3 % (0.0-0.4); Lymphocytes Absolute Auto 2.8 X10*3/uL (1.2-4.9); Lymphocytes Percent Auto 23.1 % (20-40); Mean Corpuscular HGB Conc 33.8 g/dl (31.0-36.0); Mean Corpuscular Hemoglobin 30.7 pg (27.0-33.0); Mean Corpuscular Volume 90.9 fL (80.0-98.0); Mean Platelet Volume 8.7 fL (9.4-12.4); Monocytes Absolute Auto 0.9 X10*3/uL (0.1-1.2); Monocytes Percent Auto 7.7 % (2-11); Neutrophils Percent Auto 65.2 % (45-73); Platelet Count 313 X10*3/uL (160-400); Red Blood Count 4.75 X10*6/uL (4.60-5.80); White Blood Count 12.2 X10*3/uL (4.8-10.8)
[2023-04-10 06:07] LABS: Appearance Urine Clear; Color Urine Yellow; Glucose Urine UA Negative (Negative); Leukocyte Esterase Urine Negative (Negative); Nitrite Urine Negative (Negative); PH 8.5 (5.0-9.0); Urine Blood Negative (Negative); Urine Ketones Negative (Negative); Urine Protein Negative (Neg-Trace)
[2023-04-10 06:20] LABS: Anion Gap 12 (12-20); Blood Urea Nitrogen 14 mg/dL (9-16); Calcium 9.9 mg/dL (8.4-10.2); Carbon Dioxide 31 mmol/L (22-29); Chloride 104 mmol/L (96-108); Creatinine Clr Calc Pharmacy 114.4; Estimated Glomerular Filt Rate > 60; Glucose Random 112 mg/dL (60-115); Sodium 142 mmol/L (135-145)
--- NOTE | 2023-04-10 08:02 | ED.GENADULT ---
HPI - General Adult General Chief complaint: Abdominal Pain Stated complaint: stomach pain Time Seen by Provider: 04/10/23 07:50 History of Present Illness HPI narrative: THE PATIENT IS A 37-YEAR-OLD MALE WHO LIVES WITH HIS MOTHER IN AN APARTMENT. HE SAYS THAT FOR THE LAST 2 OR 3 WEEKS HE FEELS THAT ANYTIME HE EATS AT HOME HE FEELS UNWELL. 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 HE OFTEN EATS AT WORK. WHEN HE EATS AT WORK HE HAS NO PROBLEMS. However when he eats at home he almost immediately feels a sense of nausea and foaming at the mouth and feels generally unwell for several hours. He says he has lost weight. He says that his mother's apartment has problems with rats. It has had problems with rats for 2 or 3 years. The rats have been more apparent recently. He is worried that somehow the rats are responsible for his inability to tolerate foods at home. He says his mother is not having the same symptoms. Having normal bowel movements. The patient says that he has a mass Health. He recently had dental work done and has a partial plate. He says that when he went through this procedure something happened with his insurance so that he can no longer go to [facility]. He needs to find a new primary care doctor through his insurance Related Data Previous Rx's Medication Instructions Recorded hydrocortisone acetate 25 mg 25 mg DC BID #12 ea 02/25/20 rectal suppository (Anusol-HC) ondansetron 4 mg disintegrating 4 mg PO Q6H PRN nausea and 04/10/23 tablet vomiting #10 tabs Allergies Allergy/AdvReac Type Severity Reaction Status Date / Time No Known Allergies Allergy Unverified 12/06/22 15:06 [No Known Allergies*] Review of Systems Review of Systems: Yes all other systems are reviewed and are negative [facility] Social History Social History Substance Use Type: Amphetamines Advance Directives: No Advance Directives Information Provided: No Physical Exam ED Vital Signs: Vital Signs - 24 hr 04/10/23 03:16 Temperature 99 F Pulse Rate 74 Respiratory Rate 16 Blood Pressure 169/102 H Pulse Oximetry 98 Oxygen Delivery Method Room Air BMI result Body Mass Index 20.0 Const Other: The patient is a slim and muscular 37-year-old. He is 6 ft 1 and 68.8 kilos. He does not appear in acute distress. HENMT Other: The face is symmetrical. ?Mucous membranes moist. Eyes Other: Pupils are round equal, conjunctivae are clear, extraocular movements intact Resp Other: Lungs are clear bilaterally Effort & Inspection: normal respiratory effort Auscultation: clear to auscultation bilaterally Cardio Rate: regular rate Rhythm: regular rhythm Heart sounds: S1 normal heart sound present and S2 normal heart sound present GI Other: The abdomen is soft and not apparently tender. Skin Other: Skin is pale and dry Neuro Other: The patient is awake, alert, oriented, appropriate. Speech is clear. Face is symmetrical. Moves his extremities normally. Extrem Other: No peripheral edema Psych Other: The patient denies significant depression or suicidality. Medical Decision Making Lab Data 04/10/23 05:59 04/10/23 05:59 Labs: Lab Results 04/10/23 Range/Units 05:59 WBC 12.2 H (4.8-10.8) X10*3/uL RBC 4.75 (4.60-5.80) X10*6/uL Hgb 14.6 (14.0-18.0) g/dl Hct 43.2 (42.0-52.0) % MCV 90.9 (80.0-98.0) fL MCH 30.7 (27.0-33.0) pg MCHC 33.8 (31.0-36.0) g/dl RDW 12.0 (11.0-16.0) % Plt Count 313 (160-400) X10*3/uL MPV 8.7 L (9.4-12.4) fL Immature Gran % (Auto) 0.3 (0.0-0.4) % Neut % (Auto) 65.2 (45-73) % Lymph % (Auto) 23.1 (20-40) % [place] % (Auto) 7.7 (2-11) % Eos % (Auto) 3.3 (0-4) % Baso % (Auto) 0.4 (0-2) % Lymph # (Auto) 2.8 (1.2-4.9) X10*3/uL [place] # (Auto) 0.9 (0.1-1.2) X10*3/uL Eos # (Auto) 0.4 (0.0-0.4) X10*3/uL Baso # (Auto) 0.1 (0.0-0.2) X10*3/uL Abs Immat Gran (auto) 0.04 H (0.00-0.03) X10*3/uL Absolute Neuts (auto) 8.0 (2.0-8.3) x10*3/uL Absolute Nucleated RBC 0.000 (0.0-0.012) X10*3/uL Nucleated RBC % (auto) 0.0 (0.0-0.2) /100WBC Sodium 142 (135-145) mmol/L Potassium 5.0 (3.3-5.1) mmol/L Chloride 104 (96-108) mmol/L Carbon Dioxide 31 H (22-29) mmol/L Anion Gap 12 (12-20) BUN 14 (9-16) mg/dL Creatinine 0.86 (0.5-1.4) mg/dL Estim Creat Clear Calc 114.4 Estimated GFR > 60 Random Glucose 112 (60-115) mg/dL Calcium 9.9 (8.4-10.2) mg/dL Total Bilirubin 0.6 (0.0-1.0) mg/dL Direct Bilirubin 0.3 (0.0-0.5) mg/dL AST 52 H (5-37) U/L ALT 37 (0-40) U/L Alkaline Phosphatase 58 (39-117) U/L C-Reactive Protein 0.18 (< or = 0.50) mg/dL Total Protein 7.5 (6.5-8.0) g/dL Albumin 4.3 (3.5-5.0) g/dL Lipase 11 (8-78) U/L Urine Color Yellow Urine Appearance Clear Urine pH 8.5 (5.0-9.0) Ur Specific [place] 1.020 (1.005-1.025) Urine Protein Negative (Neg-Trace) mg/dL Urine Glucose (UA) Negative (Negative) mg/dL Urine Ketones Negative (Negative) mg/dL Urine Blood Negative (Negative) Urine Nitrite Negative (Negative) Ur Leukocyte Esterase Negative (Negative) Discharge Plan Discharge Clinical Impression: Abdominal pain, Nausea Patient Disposition: Home, Self-Care Additional Instructions: Your testing in the emergency room today is reassuring. I do not have a high suspicion for any acutely dangerous process. Please try to eat foods that you feel are clean and safe to eat. I have sent a prescription for a medication for nausea the you may use to see if it is helpful. Please work on getting back with your primary care provider at [facility] Return to the emergency room if you feel significantly worse. Prescriptions: New ondansetron 4 mg tablet,disintegrating 4 mg PO Q6H PRN (Reason: nausea and vomiting) Qty: 10 0RF No Action hydrocortisone acetate [Anusol-HC] 25 mg suppository 25 mg DC BID Qty: 12 0RF Referrals: [facility]. Mel Samuel [Provider Group] (Abdominal pain)
[2023-04-10 08:19] LABS: Alanine Aminotransferase 37 U/L (0-40); Albumin Level 4.3 g/dL (3.5-5.0); Alkaline Phosphatase 58 U/L (39-117); Aspartate Amino Transferase 52 U/L (5-37); Bilirubin Direct 0.3 mg/dL (0.0-0.5); Bilirubin Total 0.6 mg/dL (0.0-1.0); C Reactive Protein 0.18 mg/dL (< or = 0.50); Lipase 11 U/L (8-78); Total Protein 7.5 g/dL (6.5-8.0)
[2023-04-10 10:42] VITALS: BP 140/87; PULSE 81; RESP 14; TEMP 36.7; O2SAT 97
== END 2023-04-10 10:48 | disposition home or self-care (01) ==
PROVIDERS: Emergency Provider Emergency Medicine
DX: R11.0 Nausea (principal); R10.9 Unspecified abdominal pain
CPT/HCPCS: 36415; 80048; 80076; 81003; 83690; 85025; 86140; 99283

== ENCOUNTER 2023-04-13 20:19 | Emergency (ER) | payer MEDICAID, SELFPAY ==
--- NOTE | ~2023-04-13 | XR_ITS ---
EXAMINATION: XR ABDOMEN KUB CLINICAL INDICATION: Pain. COMPARISON: CT abdomen and pelvis dated 12/28/2018; KUB dated 12/06/2017. TECHNIQUE: 2 AP supine views of the abdomen and pelvis are submitted. FINDINGS: There is a moderate colonic gas and stool pattern. Gas and stool are identified to the level of the rectum. Left upper quadrant anastomotic surgical lorena are again seen. There is no free intraperitoneal air. No unusual soft tissue calcifications are seen. There is no acute osseous abnormality. XR/XR KUB IMPRESSION: Findings suggest possible constipation. No jordon bowel obstruction, ileus or free intraperitoneal air is seen.
[2023-04-13 20:28] VITALS: BP 140/88; BP 154/103; PULSE 70; PULSE 89; RESP 17; TEMP 36.3; O2SAT 100; O2SAT 98; BMI 19.5
--- NOTE | 2023-04-13 21:14 | MHC.EDTECH ---
Pt asked for and given a nicole gina per RN, pt states they do not need anything else
[2023-04-13 22:00] VITALS: BP 141/88; PULSE 65; RESP 16; TEMP 36.4; O2SAT 100
--- NOTE | 2023-04-13 22:00 | MHC.EDTECH ---
Pt was assisted with the urinal and then given a nicole gina.
--- NOTE | 2023-04-13 22:05 | MHC.EDTECH ---
Pt given ham sandwich with engel, pudding, ruben crackers, and cheese stick
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
--- NOTE | 2023-04-13 23:52 | PC.NURSE ---
Patient c/o abdominal pain, while in bed eating a sandwich. Alton aware and ordered KUB and labs which were complete. waiting results. While in x-ray pt requesting full body scan. Pt back in room at this time.
[2023-04-13 23:54] LABS: MANUAL DIFF FLAG NO
[2023-04-13 23:55] LABS: Basophils Absolute Auto 0.1 X10*3/uL (0.0-0.2); Basophils Percent Auto 0.6 % (0-2); Eosinophils Absolute Auto 0.3 X10*3/uL (0.0-0.4); Eosinophils Percent Auto 3.6 % (0-4); Hematocrit 41.3 % (42.0-52.0); Hemoglobin 14.3 g/dl (14.0-18.0); Imm Gran Abs Auto 0.02 X10*3/uL (0.00-0.03); Imm Gran Pct Auto 0.2 % (0.0-0.4); Lymphocytes Absolute Auto 2.5 X10*3/uL (1.2-4.9); Lymphocytes Percent Auto 26.4 % (20-40); Mean Corpuscular HGB Conc 34.6 g/dl (31.0-36.0); Mean Corpuscular Hemoglobin 31.1 pg (27.0-33.0); Mean Corpuscular Volume 89.8 fL (80.0-98.0); Mean Platelet Volume 8.8 fL (9.4-12.4); Monocytes Absolute Auto 0.7 X10*3/uL (0.1-1.2); Monocytes Percent Auto 7.7 % (2-11); Neutrophils Absolute Auto 5.9 x10*3/uL (2.0-8.3); Neutrophils Percent Auto 61.5 % (45-73); Platelet Count 272 X10*3/uL (160-400); White Blood Count 9.6 X10*3/uL (4.8-10.8)
[2023-04-14 00:12] LABS: Alanine Aminotransferase 23 U/L (0-40); Alkaline Phosphatase 57 U/L (39-117); Anion Gap 12 (12-20); Aspartate Amino Transferase 31 U/L (5-37); Bilirubin Total 0.4 mg/dL (0.0-1.0); Blood Urea Nitrogen 13 mg/dL (9-16); Calcium 9.8 mg/dL (8.4-10.2); Carbon Dioxide 27 mmol/L (22-29); Chloride 107 mmol/L (96-108); Estimated Glomerular Filt Rate > 60; Glucose Random 83 mg/dL (60-115); Lipase 14 U/L (8-78); Sodium 142 mmol/L (135-145); Total Protein 6.7 g/dL (6.5-8.0)
== END 2023-04-14 00:40 | disposition home or self-care (01) ==
PROVIDERS: Physician Assistant; Emergency Provider Emergency Medicine; PCP Internal Medicine
DX: F16.10 Hallucinogen abuse, uncomplicated (principal); R10.9 Unspecified abdominal pain; K59.00 Constipation, unspecified
CPT/HCPCS: 36415; 74018; 80053; 83690; 85025; 99284

== ENCOUNTER 2023-04-14 11:20 | Emergency (ER) | payer MEDICAID, SELFPAY ==
--- NOTE | ~2023-04-14 | CT_ITS ---
EXAMINATION: CT ABDOMEN AND PELVIS WITHOUT CONTRAST CLINICAL INFORMATION: Diffuse abdominal pain, constipation COMPARISON: CT abdomen pelvis 12/28/2018. TECHNIQUE: Multidetector volumetric imaging was performed from the superior aspect of the liver through the pubic symphysis. Sagittal and coronal reformatted images were obtained on the technologist's workstation. This CT examination was performed using dose optimization techniques as appropriate, variously including the following: *Automated exposure control *Adjustment of mA and/or kV according to patient size (this includes techniques or standardized protocols for targeted exams where dose is matched to indication/reason for exam; i.e. extremities or head) *Use of iterative reconstruction technique DLP: 354 mGy-cm FINDINGS: Evaluation of solid organs, vascular structures, and bowel wall limited in the absence of intravenous contrast and due to paucity of intra-abdominal fat. LUNG BASES: Unremarkable. LIVER AND BILIARY TREE: Unremarkable. GALLBLADDER: Unremarkable. PANCREAS: Unremarkable. SPLEEN: Unremarkable. ADRENAL GLANDS: Unremarkable. KIDNEYS AND URETERS: Unremarkable. GASTROINTESTINAL TRACT: Redemonstrated small bowel anastomotic suture. No bowel dilation or evidence of obstruction. Large colonic stool burden. VASCULAR: Unremarkable LYMPH NODES: No lymphadenopathy. PERITONEUM: No ascites. BLADDER: Unremarkable. PELVIC VISCERA: Unremarkable. ABDOMINAL AND PELVIC WALL: Unremarkable. OSSEOUS STRUCTURES: Unremarkable. CT/CT abdomen pelvis wo IV con IMPRESSION: 1. No acute abnormality of the abdomen or pelvis, within the limitations of noncontrast technique and a generalized paucity of intra-abdominal fat. 2. Large colonic stool burden. No bowel dilation or evidence of obstruction.
--- NOTE | 2023-04-14 11:22 | ED.GENADULT ---
HPI - General Adult General Chief complaint: Abdominal Pain Stated complaint: Abd pain Time Seen by Provider: 04/14/23 11:39 Source: patient, RN notes reviewed and old records reviewed Mode of arrival: ambulatory Limitations: no limitations History of Present Illness HPI narrative: 38 year old male with pmhx significant for polysubstance abuse presents to the ED today for evaluation of diffuse abdominal pain x2 weeks. Pain has been worsening since onset. His BM recently have been hard with decreased stool output. Last BM was this morning. Endorses 2 episodes of nonbloody emesis. He was seen for same yesterday and discharged home with a prescription for zofran and hydrocortisone acetate suppository. He states that he has been unable to pick these medications up from the pharmacy as he lost his wallet which had his ID and insurance card. Today he is requesting a full body xray to assess his abdominal pain. Denies etoh consumption or illicit substance use. Denies fever, chills, hematemesis, melena, BRBPR. Related Data Previous Rx's Medication Instructions Recorded hydrocortisone acetate 25 mg 25 mg [place] BID #12 ea 02/25/20 rectal suppository (Anusol-HC) ondansetron 4 mg disintegrating 4 mg PO Q6H PRN nausea and 04/10/23 tablet vomiting #10 tabs docusate sodium 100 mg capsule 100 mg PO DAILY #10 caps 04/14/23 (Colace) polyethylene glycol 3350 17 17 g PO DAILY PRN constipation 04/14/23 gram/dose oral powder (Miralax) #119 grams Allergies Allergy/AdvReac Type Severity Reaction Status Date / Time No Known Allergies Allergy Unverified 04/14/23 11:24 [No Known Allergies*] Review of Systems Review of Systems: Constitutional: No fever, chills, fatigue, night sweats, weight changes ENT/Mouth: No ear pain, hearing loss, nasal congestion, sinus pain, rhinorrhea, sore throat Eyes: No eye pain, swelling, redness, vision changes, discharge Cardio: No chest pain, palpitations, PACE, orthopnea, peripheral edema Pulm: No SOB, cough, sputum, wheezing, dyspnea, hemoptysis GI: No nausea, vomiting, hematemesis, diarrhea, constipation, hematochezia, melena, +abdominal pain : No irregular bleeding, dysuria, frequency, urgency, hesitancy, hematuria, flank pain, urinary flow changes, urinary incontinence or retention MSK: No back pain, neck pain, joint pain, myalgias Skin: No lesions, rashes Neuro: No weakness, numbness, paresthesias, LOC, dizziness, headache Psych: No anxiety/panic, depression, SI/HI, AH/VH All other systems reviewed and are negative. [facility] Past Medical History Attestation statement: The following information was validated with the patient. Source: old records reviewed and nursing notes reviewed Social History Social History Alcohol intake: never Substance Use Type: Other Advance Directives: No Physical Exam ED Vital Signs: Vital Signs - 24 hr 04/14/23 11:24 04/14/23 15:08 Temperature 98.1 F 98.1 F Pulse Rate 71 80 Respiratory Rate 18 16 Blood Pressure 158/102 H 119/76 Pulse Oximetry 100 99 Oxygen Delivery Method Room Air Room Air BMI result Body Mass Index 19.8 Vital signs stable Const Other: + somnolent at times however arousable to verbal stimuli General: cooperative, comfortable and no acute distress Orientation/consciousness: patient oriented x3 HENMT Head: Yes normal to inspection, Yes No palpable skull fracture present, Yes normocephalic and Yes atraumatic Eyes General: appearance normal, both eyes and all related structures Conjunctivae: conjunctivae normal Sclerae: sclerae normal Pupils: Pinpoint pupils Neck Neck: Yes normal visual inspection, Yes full ROM and Yes no lymphadenopathy Chest Chest palpation & inspection: normal inspection of the chest and normal palpation of entire chest wall Resp Effort & Inspection: normal respiratory effort Auscultation: clear to auscultation bilaterally Cardio Rate: regular rate Rhythm: regular rhythm GI Other: + abdomen soft, nondistended, diffusely tender to palpation, no rebound tenderness or guarding, normoactive bowel sounds x4. Inspection: Yes normal to inspection and No visible peristalsis General: Yes no CVA tenderness Back/Spine/Pelvis Back: no CVA tenderness Skin General skin exam: no rashes or lesions noted Neuro General: patient oriented x3 and gait normal Extrem General: Yes normal to inspection Course Course Course Narrative: This is an RME: Additional HPI, ROS, PE not included below will be deferred to primary provider. Patient is a 38-year-old male who presents emergency department for evaluation of ABD pain, diffuse, was seen here yesterday and advised that this was secondary to constipation. It was recommended that he increase his fluid intake and fiber intake and take [id number] medications such as Colace and MiraLax. 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 Reevaluation(s) Reevaluation #1: 1145-- Patient requesting full body xray scan . Given his history of polysubstance use, diffuse abdominal pain, KUB showing gas & stool noted to level of rectum > will order CT scan to r/o obstruction. repeat labs not warranted. Miralax ordered by triage provider to assist with bowel movement. 1526-- CT scan showing large colonic stool burden, otherwise unremarkable. > I discussed these results with patient. He has yet to have a BM in ED today. I offered to administer enema in ED and he is agreeable. Fleet enema ordered. > he expresses frustration that we did not do a full body xray . When I ask him why he wants this he states I feel something moving in my stomach . I informed patient that xrays show us bones and that the CT scan we already performed is the imaging of choice for this complaint. 1725-- On re-evaluation, patient states that he has been able to pass 3 bowel movements since receiving Fleet enema. His abdominal pain is improving. Will send MiraLax and Colace to patient's pharmacy for constipation. Discussed worrisome signs and symptoms of when to return to the ED. Patient has remained stable throughout ED visit today. All questions answered at this time. Patient is agreeable with disposition and stable for discharge. Medications Administered Discontinued Medications Generic Name Dose Route Start Last Admin Trade Name Freq PRN Reason Stop Dose Admin Bacitracin 1 appl 04/14/23 13:50 04/14/23 14:06 Bacitracin Oint 0.9 Gm Packet TOPICAL 04/14/23 13:51 1 appl ONCE ONE Administration Protocol Ketorolac Tromethamine 30 mg 04/14/23 13:53 04/14/23 14:06 Ketorolac Tromethamine 30 Mg/Ml Vial IM 04/14/23 13:54 30 mg ONCE ONE Administration Polyethylene Glycol 17 gm 04/14/23 11:25 04/14/23 11:52 Polyethylene Glycol 3350 17 Gm Powd.Pack PO 04/14/23 11:26 17 gm ONCE ONE Administration Sodium Biphosphate/Sodium Phosphate 133 ml 04/14/23 15:39 04/14/23 16:04 Sodium Phosphate,Oliver-Dibasic 133 Ml Enema TN 04/14/23 15:40 133 ml ONCE ONE Administration Medical Decision Making Medical Decision Making MDM Narrative: 38 year old male with pmhx significant for polysubstance abuse presents to the ED today for evaluation of diffuse abdominal pain x2 weeks. Vital signs stable. Afebrile. Patient seems appears high on drugs howeever denies any ilicit substance use. He is somnolent at times however arousable to verbal stmimuli. On exam, abdomen is soft, ND, diffusely tender to palpation. no rebound tenderness of guarding. normoactive bsx4. No CVAT b/l. No rashes. Differential diagnosis includes constipation, polysubstance use, SBO Plan for imaging, pain control, and re-evaluation Differential Diagnosis Differential Diagnoses: The differential diagnosis associated with the presentation includes as above. Admission/Observation Not indicated. Independent Interpretation I performed an independent interpretation of an: Plain X-Ray and CT Scan Interpretation: I reviewed KUB obtained yesterday showing constipation without evidence of bowel obstruction. I reviewed CT scan abd/pelvis and agree with radiologist's interpretation. Radiology Impression Discussion of test interpretation with radiology: I have reviewed the radiologist's reading. Radiologist Impression: CT abdomen pelvis wo IV con IMPRESSION: 1. No acute abnormality of the abdomen or pelvis, within the limitations of noncontrast technique and a generalized paucity of intra-abdominal fat. 2. Large colonic stool burden. No bowel dilation or evidence of obstruction. External Record Review External record reviewed: Inpatient record Prescription Management I considered prescription management with: Pain Medication and Other (Laxative, stool softener) Chronic Conditions Patient?s care impacted by: Other (polysubstance abuse) Social Determinants Patient?s care significantly limited by Social Determinants of Health including: Alcoholism and drug addiction in family and Other Social Determinant of Health Discharge Plan Discharge Clinical Impression: Constipation Patient Disposition: Home, Self-Care Instructions: Constipation (ED), High Fiber Diet (ED), Fleet Enema (ED) Additional Instructions: The CT scan of your abdomen/pelvis shows severe constipation. You were given an enema in the ED today and were able to pass numerous bowel movements. Miralax is a laxative that has been sent to your pharmacy. Take this as prescribed. Colace is a stool softener? that has been sent to your pharmacy. Take this as prescribed. Both of these medications can be purchased over the counter as well. Return to the ED for new or worsening symptoms or inability to pass bowel movement. You have been provided with a referral to a new primary care doctor. You may call them to make an appointment, they will not call you. Prescriptions: New polyethylene glycol 3350 [Miralax] 17 gram/dose powder 17 g PO DAILY PRN (Reason: constipation) Qty: 119 0RF docusate sodium [Colace] 100 mg capsule 100 mg PO DAILY Qty: 10 0RF No Action hydrocortisone acetate [Anusol-HC] 25 mg suppository 25 mg [place] BID Qty: 12 0RF ondansetron 4 mg tablet,disintegrating 4 mg PO Q6H PRN (Reason: nausea and vomiting) Qty: 10 0RF Interventions: ED Discharge Assessment Last Done: 04/14/23 17:42 Discharge Date/Time: 04/14/23 17:43
[2023-04-14 11:24] VITALS: BP 158/102; PULSE 71; RESP 18; TEMP 36.7; O2SAT 100; BMI 19.8
[2023-04-14] MEDS: polyethylene glycoL 3350 17 GM POWD.PACK PO (11:52)
[2023-04-14] MEDS: Bacitracin Oint 0.9 GM PACKET 1 APPL TOPICAL (14:06)
[2023-04-14] MEDS: Ketorolac Tromethamine 30 MG/ML VIAL IM (14:06)
[2023-04-14 15:08] VITALS: BP 119/76; PULSE 80; RESP 16; TEMP 36.7; O2SAT 99
--- NOTE | 2023-04-14 15:16 | MHC.EDTECH ---
Pt given juice and sandwich
--- NOTE | 2023-04-14 15:53 | MHC.EDTECH ---
Pt given two blankets
[2023-04-14] MEDS: Sodium Phosphate,Mono-Dibasic 133 ML ENEMA PR (16:04)
== END 2023-04-14 17:43 | disposition home or self-care (01) ==
PROVIDERS: Emergency Provider Emergency Medicine; PCP Internal Medicine
DX: K59.00 Constipation, unspecified (principal); R10.30 Lower abdominal pain, unspecified; Z79.899 Other long term (current) drug therapy
CPT/HCPCS: 74176; 96372; 99283; 99284; J1885

== ENCOUNTER 2023-04-21 05:10 | Inpatient (IN) | payer MEDICAID, SELFPAY ==
--- NOTE | 2023-04-21 | ECG_ITS ---
Test Reason : ABD PAIN Blood Pressure : / mmHG Vent. Rate : 069 BPM Atrial Rate : 069 BPM P-R Int : 142 ms QRS Dur : 082 ms QT Int : 384 ms P-R-T Axes : 078 075 062 degrees QTc Int : 411 ms Normal sinus rhythm Possible Left atrial enlargement Minimal voltage criteria for LVH, may be normal variant ( Sokolow-Drummond ) Borderline ECG When compared with ECG of 27-DEC-2018 02:00, No significant change was found Referred By: Generic ED Physician Electronically Signed By:EMETERIO MEEK
--- NOTE | ~2023-04-21 | CT_ITS ---
EXAMINATION: CT ABDOMEN AND PELVIS WITH CONTRAST CLINICAL INFORMATION: Abdominal pain. Question small bowel obstruction. COMPARISON: CT scans dating between 04/14/2023 and 11/03/2016. TECHNIQUE: Multidetector volumetric images were obtained from the superior aspect of the liver through the pubic symphysis following administration 85 mL of Omnipaque 350 intravenous contrast. Sagittal and coronal reformatted images were obtained on the technologist's workstation. Oral contrast: No This CT examination was performed using dose optimization techniques as appropriate, variously including the following: *Automated exposure control *Adjustment of mA and/or kV according to patient size (this includes techniques or standardized protocols for targeted exams where dose is matched to indication/reason for exam; i.e. extremities or head) *Use of iterative reconstruction technique DLP: 534 mGy-cm FINDINGS: The study is quite limited due to lack of oral contrast, paucity of intra-abdominal fat, anasarca, and technique. LUNG BASES: The lung bases appear clear, with no evidence of inflammation or nodules. LIVER, GALLBLADDER, AND BILIARY TREE: The liver appears unremarkable in size, shape, and attenuation. No focal hepatic lesion or biliary ductal dilatation is appreciated. Unremarkable appearance of the gallbladder. PANCREAS: Unremarkable SPLEEN: Unremarkable ADRENAL GLANDS: Unremarkable KIDNEYS AND URETERS: Subcentimeter benign right simple renal cyst for which no further dedicated follow up imaging is indicated. The kidneys otherwise appear unremarkable in size, shape, and attenuation. No hydronephrosis, hydroureter, or calculi seen. BLADDER: Unremarkable GASTROINTESTINAL TRACT: Left mid abdominal anastomotic lorena, unchanged compared with most recent prior study dated 04/14/2023. No evidence of intestinal obstruction or free air. Moderate stool and air throughout the colon and rectal vault, not grossly changed. ABDOMINAL WALL: Anasarca, unchanged. No significant hernia is appreciated. LYMPH NODES: No evidence of adenopathy by size criteria. VASCULAR: Unremarkable PELVIC VISCERA: Unremarkable OSSEOUS STRUCTURES: Unremarkable CT/CT abdomen pelvis w IV con IMPRESSION: Significantly limited study. No significant radiographic change compared with one week prior.
[2023-04-21 05:20] VITALS: BP 136/74; BP 136/93; PULSE 61; PULSE 80; RESP 20; TEMP 36.4; O2SAT 100; O2SAT 98; BMI 21.1
--- NOTE | 2023-04-21 05:26 | ED_ITS ---
HPI - Abdominal Pain General Chief Complaint: Abdominal Pain Stated Complaint: abd pain Time Seen by Provider: 04/21/23 05:16 Source: patient and EMS Mode of arrival: EMS History of Present Illness HPI narrative: Patient history of PCP abuse with chronic constipation with frequent ED visits admitted on 04/10 discharged on 04/14 for severe constipation discharged on Colace and MiraLax comes back as is not moving bowels since discharge and is taking Colace does not think that he take MiraLax patient took PCP prior to arrival patient passing gas with nausea occasional vomiting very poor historian Related Data Previous Rx's Medication Instructions Recorded hydrocortisone acetate 25 mg 25 mg [place] BID #12 ea 02/25/20 rectal suppository (Anusol-HC) ondansetron 4 mg disintegrating 4 mg PO Q6H PRN nausea and 04/10/23 tablet vomiting #10 tabs docusate sodium 100 mg capsule 100 mg PO DAILY #10 caps 04/14/23 (Colace) polyethylene glycol 3350 17 17 g PO DAILY PRN constipation 04/14/23 gram/dose oral powder (Miralax) #119 grams Allergies Allergy/AdvReac Type Severity Reaction Status Date / Time No Known Allergies Allergy Verified 04/21/23 05:19 [No Known Allergies*] Review of Systems Review of Systems Yes all other systems are reviewed and are negative [facility] Social History Social History Alcohol intake: never Smoked in Last 30 Days: No Use of substances other than those prescribed or required for medical reasons: No Substance Use Type: Other Physical Exam ED Vital Signs: Vital Signs - 24 hr 04/21/23 05:20 Temperature 97.6 F Pulse Rate 61 Respiratory Rate 20 Blood Pressure 136/93 H Pulse Oximetry 98 Oxygen Delivery Method Room Air BMI result Body Mass Index 21.1 Appearance: Alert. Oriented X3. No acute distress. Patient high on PCP Eyes: PERRLA, No Nystagmus ENT: Pharynx normal. Oral Mucosa moist Neck: Normal inspection. Neck supple. CVS: Normal heart rate and rhythm. Pulses normal. Respiratory: No respiratory distress. Equal air entry bilateral, Abdomen: Soft and nontender. Bowel sounds are present, no mass palpable, no CVA tenderness Skin: Skin warm and dry. Normal skin color. Normal skin turgor. Extremities: No lower extremity edema. No calf tenderness Neuro: Oriented X 3. Medical Decision Making Medical Decision Making [facility] Narrative: Patient with PCP intoxication hallucinating acting weak in the ER says he has constipation bowel sounds are present abdomen is not distended patient vomited once in the ER stool softener were given will re-evaluate Medications Administered Discontinued Medications Generic Name Dose Route Start Last Admin Trade Name Freq PRN Reason Stop Dose Admin Bisacodyl 10 mg 04/21/23 05:32 04/21/23 06:18 Bisacodyl 5 Mg Tablet.Dr PO 04/21/23 05:33 10 mg ONCE ONE Administration Magnesium Hydroxide 30 ml 04/21/23 05:32 04/21/23 06:18 Milk Of Magnesia 30 Ml Oral.Susp PO 04/21/23 05:33 30 ml ONCE ONE Administration Discharge Plan Discharge Clinical Impression: Constipation, PCP (phencyclidine) abuse Patient Disposition: Still a Patient Prescriptions: No Action hydrocortisone acetate [Anusol-HC] 25 mg suppository 25 mg [place] BID Qty: 12 0RF polyethylene glycol 3350 [Miralax] 17 gram/dose powder 17 g PO DAILY PRN (Reason: constipation) Qty: 119 0RF docusate sodium [Colace] 100 mg capsule 100 mg PO DAILY Qty: 10 0RF ondansetron 4 mg tablet,disintegrating 4 mg PO Q6H PRN (Reason: nausea and vomiting) Qty: 10 0RF
[2023-04-21] MEDS: Milk of Magnesia 30 ML ORAL.SUSP PO (06:18)
[2023-04-21] MEDS: bisacodyL 5 MG TABLET.DR 10 MG PO (06:18)
--- NOTE | 2023-04-21 06:30 | PC.NURSE ---
late entry- pt biba from home reporting that one week ago he has surgery for a blockage and is reporting not moving his bowels for 7 days. upon arrival to ED pt eyes rolling in head and muscles stiff. pt reports hx of CP use but denies it at this time. pt abdomen soft non tender to touch. pt medicated per apr.
--- NOTE | 2023-04-21 07:14 | PC.NURSE ---
this RN resumed care of pt at this time. pt seemingly uncomfortably. upon entry to room - pt on all 4's/RLE hanging out of bed. pt vomited a large amount onto the floor. pt grunting/keeping eyes closed stating that he is cold although he removed all of his clothing. per previous RN - pt originally came in for chief complaint of abdominal pain but then as ED provider assessed pt - pt stated that he was on PCP. rn discharge made aware of situation and states that pt does not need to be changed over at this time. per dr. whitman - plan is for pt to stabilize prior to d/c. nsr on the case monitor. pt refusing vitals to be obtained. respirations even and unlabored. call krishnamurthy placed within reach.
[2023-04-21 08:29] VITALS: BP 132/100; PULSE 67; RESP 18; TEMP 36.4; O2SAT 99
--- NOTE | 2023-04-21 09:00 | PC.NURSE ---
pt continuously ripping off equipment at this time. unable to remain still d/t being uncomfortable. pt laying in position to promote comfort. respirations even and unlabored.
[2023-04-21 09:36] LABS: Glucose, Whole Blood 118 mg/dL (60-115)
--- NOTE | 2023-04-21 09:47 | PC.NURSE ---
environmental monitoring specialist reapplied to pt. POC obtained. xray bedside - attempting to perform KUB. pt unable to lay flat on back d/t being uncomfortable. pt laying on all fours to promote comfort. nsr on the environmental monitoring specialist. ED provider/notified and aware of KUB being unsuccessful. plan of care ongoing.
[2023-04-21 10:56] LABS: MANUAL DIFF FLAG NO
[2023-04-21 10:57] LABS: Basophils Percent Auto 0.3 % (0-2); Eosinophils Percent Auto 0.2 % (0-4); Hematocrit 42.7 % (42.0-52.0); Hemoglobin 14.6 g/dl (14.0-18.0); Imm Gran Abs Auto 0.02 X10*3/uL (0.00-0.03); Imm Gran Pct Auto 0.3 % (0.0-0.4); Lymphocytes Absolute Auto 0.8 X10*3/uL (1.2-4.9); Lymphocytes Percent Auto 12.7 % (20-40); Mean Corpuscular HGB Conc 34.2 g/dl (31.0-36.0); Mean Corpuscular Hemoglobin 30.6 pg (27.0-33.0); Mean Corpuscular Volume 89.5 fL (80.0-98.0); Mean Platelet Volume 8.9 fL (9.4-12.4); Monocytes Absolute Auto 0.2 X10*3/uL (0.1-1.2); Monocytes Percent Auto 3.9 % (2-11); Neutrophils Absolute Auto 5.1 x10*3/uL (2.0-8.3); Neutrophils Percent Auto 82.6 % (45-73); Platelet Count 318 X10*3/uL (160-400); Red Blood Count 4.77 X10*6/uL (4.60-5.80); White Blood Count 6.1 X10*3/uL (4.8-10.8)
[2023-04-21] MEDS: ondansetron HCL 4 MG/2 ML VIAL IVPUSH (11:05)
[2023-04-21 11:08] VITALS: BP 133/84; PULSE 55; RESP 14; TEMP 36.8; O2SAT 99
--- NOTE | 2023-04-21 11:09 | PC.NURSE ---
vss and up to date. sinus arjun on the long chain beamer - 55-60bpm. pt remains seemingly altered. unable to respond to questions appropriately. pt laying w/ eyes closed in no apparent distress. 20gIV placed in the left forearm - labs obtained/sent to lab. medication/IVF administered per provider order. no sob/wob noted. respirations remain even and unlabored. pt waiting to go to CT a this time. call krishnamurthy placed within reach.
[2023-04-21 11:10] LABS: Lactic Acid 1.1 mmol/L (0.5-2.0)
[2023-04-21] MEDS: 0.9 % Sodium Chloride 1,000 ML 999 ML IV (11:12)
[2023-04-21 11:14] LABS: Alanine Aminotransferase 30 U/L (0-40); Albumin Level 4.6 g/dL (3.5-5.0); Alkaline Phosphatase 62 U/L (39-117); Anion Gap 18 (12-20); Aspartate Amino Transferase 52 U/L (5-37); Bilirubin Total 0.7 mg/dL (0.0-1.0); Blood Urea Nitrogen 11 mg/dL (9-16); Calcium 10.2 mg/dL (8.4-10.2); Carbon Dioxide 26 mmol/L (22-29); Chloride 102 mmol/L (96-108); Creatinine Clr Calc Pharmacy 125.4; Estimated Glomerular Filt Rate > 60; Glucose Random 118 mg/dL (60-115); Potassium 4.2 mmol/L (3.3-5.1); Sodium 142 mmol/L (135-145); Total Protein 8.2 g/dL (6.5-8.0)
--- NOTE | 2023-04-21 11:45 | PC.NURSE ---
pt returned from CT at this time. IVF continues to infuse at this time. respirations remain even and unlabored. call krishnamurthy placed within reach.
--- NOTE | 2023-04-21 11:58 | PC.NURSE ---
urine obtained/sent to lab.
[2023-04-21 12:10] LABS: Amphetamine Screen Urine Not Detected (Not Detect); Barbiturates, Urine Not Detected (Not Detect); Benzodiazepines Screen Urine Not Detected (Not Detect); Cannabinoid Screen Urine POSITIVE (Not Detect); Cocaine Screen Urine POSITIVE (Not Detect); Fentanyl, urine Not Detected (Not Detect); Opiate Screen Urine Not Detected (Not Detect); Phencyclidine Screen Urine POSITIVE (Not Detect)
[2023-04-21] MEDS: iohexoL 350 MG/ML 75 ML INFUS..BTL 85 ML IV (12:13)
--- NOTE | 2023-04-21 13:37 | PC.NURSE ---
this RN was walking into the room for the pt to attempt a PO challenge - pt vomited all over floor as well as on his own personal belongings. provider notified/aware. provider states to hold fleet enema administration until she speaks w/ hospitalist in regards to possible admission. plan of care ongoing at this time.
[2023-04-21] MEDS: Sodium Phosphate,Mono-Dibasic 133 ML ENEMA PR (14:08)
--- NOTE | 2023-04-21 14:09 | PC.NURSE ---
pt unable to tolerate fleet enema administration. pt remains seemingly uncomfortable and not cooperative w/ care at this time. provider notified/aware.
--- NOTE | 2023-04-21 14:12 | PM.IMHP ---
History of Present Illness Date of Service: 04/21/23 Chief Complaint: constipation 38-year-old man presented to the ER with complaints of nausea, vomiting and constipation. 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 Abdominal CT showing moderate stool and air throughout the colon and rectal vault similar to previous CT scan. No fever leukocytosis noted, all labs within acceptable limits. Patient given IV fluids, bisacodyl, milk of magnesia and Fleet's enema in the ER. He will be placed on observation for severe constipation. Review of Systems Review of Systems: Denies any recent fever chills or decrease in appetite respiratory denies any shortness of breath or cough cardiovascular denied chest pain gastrointestinal see hpi genitourinary denies any dysuria frequency or hematuria musculoskeletal denies any joint pain or swelling neuropsych denies any weakness or seizures all other systems reviewed are negative [facility] Social History Alcohol intake: never Smoked in Last 30 Days: No Use of substances other than those prescribed or required for medical reasons: No Substance Use Type: Other Advance Directives: No Advance Directives Information Provided: No Meds Allergies Allergy/AdvReac Type Severity Reaction Status Date / Time No Known Allergies Allergy Verified 04/21/23 05:19 [No Known Allergies*] Active Medications: Current Medications Acetaminophen (Acetaminophen 325 Mg Tablet) 650 mg PO Q6H PRN PRN Reason: Pain, Mild (Pain Scale 1-3) Enoxaparin Sodium (Enoxaparin Sodium 40 Mg/0.4 Ml Syringe) 40 mg SUBCUT Q24H [facility] Sodium Chloride (0.9 % Sodium Chloride Flush 3 Ml Syringe) 3 ml IVFLUSH QSHIFT [facility] Home Medications Medication Instructions Recorded Confirmed Last Taken Type buprenorphine 8 mg-naloxone 2 mg 1 film sublingual TID 04/21/23 04/21/23 Unknown History sublingual film (Suboxone) polyethylene glycol 3350 17 17 g PO DAILY PRN constipation 04/21/23 04/21/23 Unknown History gram/dose oral powder Physical Exam Vital Signs and Narrative: Vital Signs: Last Vital Signs Temp 98.2 F 04/21/23 11:08 Pulse 55 04/21/23 11:08 Resp 14 04/21/23 11:08 BP 133/84 04/21/23 11:08 Pulse Ox 99 04/21/23 11:08 O2 Del Method Room Air 04/21/23 11:08 BMI result Body Mass Index 21.1 Appearing in no acute distress head is normocephalic atraumatic eyes pupils are PERRLA sclera is anicteric mouth throat mucous membranes are intact and moist neck is supple no lymphadenopathy, no JVD noted lung sounds are clear to auscultation heart regular rate rhythm, clear S1, S2 positive bowel sounds, abdomen is soft, nontender neuro patient is alert x3, no focal deficits Results Labs 04/21/23 10:52 04/21/23 10:52 Labs: Laboratory Results - last 24 hr 04/21/23 04/21/23 04/21/23 09:32 10:52 11:55 MCV 89.5 MCH 30.6 MCHC 34.2 RDW 12.0 Plt Count 318 MPV 8.9 L Immature Gran % (Auto) 0.3 Neut % (Auto) 82.6 H Lymph % (Auto) 12.7 L [place] % (Auto) 3.9 Eos % (Auto) 0.2 Baso % (Auto) 0.3 Lymph # (Auto) 0.8 L [place] # (Auto) 0.2 Eos # (Auto) 0.0 Baso # (Auto) 0.0 Abs Immat Gran (auto) 0.02 Absolute Neuts (auto) 5.1 Absolute Nucleated RBC 0.000 Nucleated RBC % (auto) 0.0 Anion Gap 18 Estim Creat Clear Calc 125.4 Estimated GFR > 60 POC Glucose 118 H Random Glucose 118 H Lactic Acid 1.1 Calcium 10.2 Total Bilirubin 0.7 AST 52 H ALT 30 Alkaline Phosphatase 62 Total Protein 8.2 H Albumin 4.6 Urine Opiates Screen Not Detected Urine Fentanyl Screen Not Detected Ur Barbiturates Screen Not Detected Ur Phencyclidine Scrn POSITIVE H Ur Amphetamines Screen Not Detected U Benzodiazepines Scrn Not Detected Urine Cocaine Screen POSITIVE H U Marijuana (THC) Screen POSITIVE H Imaging Radiologist's Impressions: Impressions Abdomen/Pelvis CT 04/21/23 12:13 IMPRESSION: Significantly limited study. No significant radiographic change compared with one week prior. Assessment and Plan (1) Cocaine abuse: Status: Acute (2) PCP (phencyclidine) abuse: Status: Acute Plan 30-year-old man presented to the ER with nausea vomiting and severe constipation. Severe constipation Seen on abdominal CT Had some nausea and vomiting so difficult taking oral medications Seen by General surgery with recommendation for fleets enemas Clear liquid diet for now when more awake Intractable nausea and vomiting Possibly secondary to constipation antiemetics Substance abuse Urine toxicology positive for PCP, cocaine and marijuana Will consult recovery team DVT prophylaxis Lovenox Full code Observation Quality Stroke Does the patient have a stroke diagnosis?: No VTE Prior VTE?: No VTE Risk Level:: Medical - moderate - high VTE Device Contraindication: Treatment Not Indicated VTE Drug Contraindication: N/A - Med Ordered
--- NOTE | 2023-04-21 14:23 | PHA.MEDREC ---
Pharmacy Consult ? Medication Reconciliation Pharmacy has completed the medication reconciliation. used claim history to verify medications. PDMP confirmed suboxone last picked up 04/15/23 for TID 84 DS.
--- NOTE | 2023-04-21 14:45 | PC.NURSE ---
Rachna Hood (mother's phone number) [phone].
[2023-04-21] MEDS: Lactated Ringers 1,000 ML 125 ML IVCONT ×2 (15:26→22:47)
[2023-04-21 15:30] VITALS: BP 133/84; PULSE 85; RESP 16; TEMP 36.8; O2SAT 100
[2023-04-21] MEDS: Mineral OiL enema 133 ML ENEMA PR (17:28)
[2023-04-21] MEDS: Enoxaparin Sodium 40 MG/0.4 ML SYRINGE SUBCUT (17:29)
--- NOTE | 2023-04-21 17:40 | PC.NURSE ---
fleet enema administered. effectiveness pending at this time.
--- NOTE | 2023-04-21 18:32 | PC.NURSE ---
fleet enema previously administered but pt has not been able to defecate. pt lying flat on back/in no apparent distress. when this RN asked pt if he was able to have a BM, he said no. pt still verbalizing 9/10 abd pain. LR continues to infuse at this time. pt waiting for bed assignment at this time. call krishnamurthy placed within reach.
--- NOTE | 2023-04-21 20:44 | PC.NURSE ---
Assumed care of pt at 19:15, PT laying in bed, eyes closed, resp even and unlabored, arousable to verbal stimuli, Offers no complaints at this time.
[2023-04-21 21:45] VITALS: BP 115/68; PULSE 77; RESP 14; TEMP 36.5; O2SAT 97
[2023-04-22] VITALS (7 sets, daily range): BP systolic 98–133; BP diastolic 63–87; PULSE 64–72; RESP 13–18; TEMP 36.6–36.9; O2SAT 96–100
[2023-04-22] MEDS: Acetaminophen 325 MG TABLET 650 MG PO (02:11)
--- NOTE | 2023-04-22 03:15 | PC.NURSE ---
Brother at bedside and reported to this nurse that he gave him muffins to eat. Reiterated importance of clear liquid diet and to please refrain from giving pt food without consulting with medical staff.
[2023-04-22] MEDS: Melatonin 3 MG TABLET 6 MG PO ×2 (03:31→20:19)
[2023-04-22 06:30] LABS: Hematocrit 37.8 % (42.0-52.0); Hemoglobin 12.9 g/dl (14.0-18.0); Mean Corpuscular HGB Conc 34.1 g/dl (31.0-36.0); Mean Corpuscular Hemoglobin 30.9 pg (27.0-33.0); Mean Corpuscular Volume 90.6 fL (80.0-98.0); Mean Platelet Volume 9.4 fL (9.4-12.4); Platelet Count 336 X10*3/uL (160-400); Red Blood Count 4.17 X10*6/uL (4.60-5.80); Red Cell Distribution Width 12.1 % (11.0-16.0); White Blood Count 7.3 X10*3/uL (4.8-10.8)
[2023-04-22] MEDS: Lactated Ringers 1,000 ML 125 ML IVCONT ×3 (06:55→22:19)
[2023-04-22 07:05] LABS: Anion Gap 11 (12-20); Blood Urea Nitrogen 13 mg/dL (9-16); Calcium 8.7 mg/dL (8.4-10.2); Carbon Dioxide 27 mmol/L (22-29); Chloride 107 mmol/L (96-108); Creatinine Clr Calc Pharmacy 130.1; Estimated Glomerular Filt Rate > 60; Glucose Random 92 mg/dL (60-115); Potassium 3.8 mmol/L (3.3-5.1); Sodium 141 mmol/L (135-145)
--- NOTE | 2023-04-22 09:13 | MHC.CM.PN ---
Met with patient in regards to discharge planning. Patient lives with his mother, ambulates independently and had no services prior to coming to the hospital. Patient states his PCP was at [place] but his insurance recently changed within [facility] and Dr Sumner is now his PCP. He is hoping to transfer back to [place]. Patient has a HCP at [facility]. T/W is attempting to obtain a copy. Patient has received 4 Moderna vaccines. Patients family/friend will transport him home when medically stable. Continue to monitor for d/c needs.
--- NOTE | 2023-04-22 09:43 | PC.NURSE ---
Report sent via [employer].
[2023-04-22] MEDS: Morphine Sulfate 2 MG/ML CARTRIDGE IVPUSH ×3 (12:04→20:11)
--- NOTE | 2023-04-22 12:29 | HO.ADDICTCON ---
History of Present Illness Date of Service: 04/22/2023 Chief Complaint: Constipation Reason for Consult: substance use (+PCP and cocaine UDS) Sources of Information: chart reviewed HPI Narrative: Patient is a 38 year old male currently medically admitted with constipation. Attempted to meet with patient in room 377, however patient was unwilling to engage with this automobile and property underwriter and appeared to be on the phone. He was at the edge of the bed curled up reporting stomach pain, when t/w attempted to assess pain further, he appeared to respond to whoever he was speaking to on the phone or mumbling. Attempted to again engage and patient not responsive to t/w. Assement ended Medical Evaluation Reviewed: Yes Review of Systems Review of Systems Yes Other (patient not engaging ) Diagnostics Vital Signs (24Hr): Vital Signs - 24 hr 04/21/23 15:30 04/21/23 21:45 04/22/23 08:50 Temperature 98.3 F 97.7 F 98.1 F Pulse Rate 85 77 72 Respiratory Rate 16 14 13 Blood Pressure 133/84 115/68 98/71 Pulse Oximetry 100 97 100 Oxygen Delivery Method Room Air Room Air 04/22/23 11:28 Temperature 97.9 F Pulse Rate 66 Respiratory Rate 18 Blood Pressure 127/87 Pulse Oximetry 99 Oxygen Delivery Method Room Air BMI result Body Mass Index 21.1 Labs 04/22/23 04:54 04/22/23 04:54 Labs: Laboratory Results - last 48 hr 04/21/23 04/21/23 04/21/23 09:32 10:52 11:55 WBC 6.1 RBC 4.77 Hgb 14.6 Hct 42.7 MCV 89.5 MCH 30.6 MCHC 34.2 RDW 12.0 Plt Count 318 MPV 8.9 L Immature Gran % (Auto) 0.3 Neut % (Auto) 82.6 H Lymph % (Auto) 12.7 L [place] % (Auto) 3.9 Eos % (Auto) 0.2 Baso % (Auto) 0.3 Lymph # (Auto) 0.8 L [place] # (Auto) 0.2 Eos # (Auto) 0.0 Baso # (Auto) 0.0 Abs Immat Gran (auto) 0.02 Absolute Neuts (auto) 5.1 Absolute Nucleated RBC 0.000 Nucleated RBC % (auto) 0.0 Sodium 142 Potassium 4.2 Chloride 102 Carbon Dioxide 26 Anion Gap 18 BUN 11 Creatinine 0.82 Estim Creat Clear Calc 125.4 Estimated GFR > 60 POC Glucose 118 H Random Glucose 118 H Lactic Acid 1.1 Calcium 10.2 Total Bilirubin 0.7 AST 52 H ALT 30 Alkaline Phosphatase 62 Total Protein 8.2 H Albumin 4.6 Urine Opiates Screen Not Detected Urine Fentanyl Screen Not Detected Ur Barbiturates Screen Not Detected Ur Phencyclidine Scrn POSITIVE H Ur Amphetamines Screen Not Detected U Benzodiazepines Scrn Not Detected Urine Cocaine Screen POSITIVE H U Marijuana (THC) Screen POSITIVE H 04/22/23 04:54 WBC 7.3 RBC 4.17 L Hgb 12.9 L Hct 37.8 L MCV 90.6 MCH 30.9 MCHC 34.1 RDW 12.1 Plt Count 336 MPV 9.4 Immature Gran % (Auto) Neut % (Auto) Lymph % (Auto) [place] % (Auto) Eos % (Auto) Baso % (Auto) Lymph # (Auto) [place] # (Auto) Eos # (Auto) Baso # (Auto) Abs Immat Gran (auto) Absolute Neuts (auto) Absolute Nucleated RBC 0.000 Nucleated RBC % (auto) 0.0 Sodium 141 Potassium 3.8 Chloride 107 Carbon Dioxide 27 Anion Gap 11 L BUN 13 Creatinine 0.79 Estim Creat Clear Calc 130.1 Estimated GFR > 60 POC Glucose Random Glucose 92 Lactic Acid Calcium 8.7 D Total Bilirubin AST ALT Alkaline Phosphatase Total Protein Albumin Urine Opiates Screen Urine Fentanyl Screen Ur Barbiturates Screen Ur Phencyclidine Scrn Ur Amphetamines Screen U Benzodiazepines Scrn Urine Cocaine Screen U Marijuana (THC) Screen Imaging Radiology Impressions: ITS Impressions Abdomen/Pelvis CT 04/21/23 12:13 IMPRESSION: Significantly limited study. No significant radiographic change compared with one week prior. Mental Status Exam Mental Status Exam Patient Appearance: Disheveled (numerous healed circular wounds visible on patient's back. ) Medications Medications Current Medications Acetaminophen (Acetaminophen 325 Mg Tablet) 650 mg PO Q6H PRN PRN Reason: Pain, Mild (Pain Scale 1-3) Last Admin: 04/22/23 02:11 Dose: 650 mg Enoxaparin Sodium (Enoxaparin Sodium 40 Mg/0.4 Ml Syringe) 40 mg SUBCUT Q24H [facility] Last Admin: 04/21/23 17:29 Dose: 40 mg Lactated Ringer's (Lr) 1,000 mls @ 125 mls/hr IVCONT .Q8H [facility] Last Admin: 04/22/23 06:55 Dose: 125 mls/hr Melatonin (Melatonin 3 Mg Tablet) 6 mg PO BEDTIME PRN PRN Reason: Insomnia Last Admin: 04/22/23 03:31 Dose: 6 mg Morphine Sulfate (Morphine Sulfate 2 Mg/Ml Cartridge) 2 mg IVPUSH Q4H PRN; Protocol PRN Reason: Pain, Moderate(Pain Scale 4-6) Last Admin: 04/22/23 12:04 Dose: 2 mg Sodium Chloride (0.9 % Sodium Chloride Flush 3 Ml Syringe) 3 ml IVFLUSH QSHIFT [facility] Last Admin: 04/22/23 09:22 Dose: Not Given Allergies Allergies Allergy/AdvReac Type Severity Reaction Status Date / Time No Known Allergies Allergy Verified 04/21/23 05:19 [No Known Allergies*] Assessment & Plan Assessment & Plan (1) PCP (phencyclidine) abuse: Status: Acute Code(s): F16.10 - Hallucinogen abuse, uncomplicated Assessment and Plan: no recommendations secondary to patient not participating in interview resconsult if patient would like to meet with Recovery team (2) Cocaine abuse: Status: Acute Code(s): F14.10 - Cocaine abuse, uncomplicated Total time managing care of this patient today __15__ minutes. PMFSH Social History Social History Alcohol intake: never Patient Tobacco Use Status: Never used Tobacco Smoked in Last 30 Days: No Use of substances other than those prescribed or required for medical reasons: No Substance Use Type: Other Advance Directives: No Advance Directives Information Provided: No Nutrition Risks: No Nutritional Risk service: No
--- NOTE | 2023-04-22 12:51 | PC.NURSE ---
Admitted to the unit for complaints of constipation and abdominal pain. Behavior is belligerent and swearing at times. Calmer after morphine administered.
--- NOTE | 2023-04-22 13:53 | HO.PM.IMPN ---
Subjective Subjective Date of Service: 04/22/23 Review of Systems Follow up constipation abd pain Physical Exam Vital Signs: Vital Signs: Last Vital Signs Temp 97.9 F 04/22/23 11:28 Pulse 65 04/22/23 12:15 Resp 16 04/22/23 12:15 BP 122/86 04/22/23 12:15 Pulse Ox 99 04/22/23 11:28 O2 Del Method Room Air 04/22/23 11:28 BMI result Body Mass Index 21.1 Appearing in no acute distress head is normocephalic atraumatic eyes pupils are PERRLA sclera is anicteric mouth throat mucous membranes are intact and moist neck is supple no lymphadenopathy, no JVD noted lung sounds are clear to auscultation heart regular rate rhythm, clear S1, S2 positive bowel sounds, abdomen is soft, nontender neuro patient is alert x3, no focal deficits Objective Data Active Medications Acetaminophen (Acetaminophen 325 Mg Tablet) 650 mg PO Q6H PRN PRN Reason: Pain, Mild (Pain Scale 1-3) Last Admin: 04/22/23 02:11 Dose: 650 mg Documented By: DARCY Enoxaparin Sodium (Enoxaparin Sodium 40 Mg/0.4 Ml Syringe) 40 mg SUBCUT Q24H REPLACED BY [facility] Last Admin: 04/21/23 17:29 Dose: 40 mg Documented By: TAYLER Lactated Ringer's (Lr) 1,000 mls @ 125 mls/hr IVCONT .Q8H REPLACED BY [facility] Last Admin: 04/22/23 06:55 Dose: 125 mls/hr Documented By: DARCY Melatonin (Melatonin 3 Mg Tablet) 6 mg PO BEDTIME PRN PRN Reason: Insomnia Last Admin: 04/22/23 03:31 Dose: 6 mg Documented By: DARCY Morphine Sulfate (Morphine Sulfate 2 Mg/Ml Cartridge) 2 mg IVPUSH Q4H PRN; Protocol PRN Reason: Pain, Moderate(Pain Scale 4-6) Last Admin: 04/22/23 12:04 Dose: 2 mg Documented By: SAGRARIO Sodium Chloride (0.9 % Sodium Chloride Flush 3 Ml Syringe) 3 ml IVFLUSH QSHIFT REPLACED BY [facility] Last Admin: 04/22/23 09:22 Dose: Not Given Documented By: SZUIE Non-Admin Reason: IV Running Labs 04/22/23 04:54 04/22/23 04:54 Labs: Laboratory Results - last 24 hr 04/22/23 04:54 MCV 90.6 MCH 30.9 MCHC 34.1 RDW 12.1 Plt Count 336 MPV 9.4 Absolute Nucleated RBC 0.000 Nucleated RBC % (auto) 0.0 Anion Gap 11 L Estim Creat Clear Calc 130.1 Estimated GFR > 60 Random Glucose 92 Calcium 8.7 D Microbiology Microbiology Results: Microbiology 04/21/23 11:06 Blood Culture - Preliminary Blood - Venous No growth after 24 hours. 04/21/23 10:52 Blood Culture - Preliminary Blood - Venous No growth after 24 hours. Assessment and Plan (1) Cocaine abuse: Status: Acute Plan 30-year-old man presented to the ER with nausea vomiting and severe constipation. Severe constipation with abd pain Seen on abdominal CT Seen by General surgery with recommendation for fleets enema, still no BM Clear liquid diet if no nausea or vomiting Morphine for pain IV fluids GoLYTELY prep until bowel movement Intractable nausea and vomiting. Resolved Possibly secondary to constipation antiemetics Substance abuse Urine toxicology positive for PCP, cocaine and marijuana recovery team consult>suboxone DVT prophylaxis Lovenox Attending Dr. Carter Full code Observation Quality Stroke Does the patient have a stroke diagnosis?: No VTE Prior VTE?: No VTE Risk Level:: Medical - moderate - high VTE Device Contraindication: Treatment Not Indicated VTE Drug Contraindication: N/A - Med Ordered
[2023-04-22] MEDS: Enoxaparin Sodium 40 MG/0.4 ML SYRINGE SUBCUT (14:37)
[2023-04-22] MEDS: Mineral OiL enema 133 ML ENEMA PR (14:42)
[2023-04-22] MEDS: Buprenorphine/Naloxone 8/2 mg FILM 1 FILM SUBLINGUAL ×2 (15:42→21:05)
[2023-04-22] MEDS: PEG 3350/Na Sulf,Bicarb,Cl/KCL 4,000 ML SOLN.RECON 4000 ML PO (18:05)
[2023-04-22] MEDS: ondansetron HCL 4 MG/2 ML VIAL IVPUSH (18:05)
[2023-04-23] MEDS: Morphine Sulfate 2 MG/ML CARTRIDGE IVPUSH ×3 (00:03→08:40)
[2023-04-23] MEDS: 0.9 % Sodium Chloride Flush 3 ML SYRINGE IVFLUSH (00:03)
[2023-04-23 04:00] VITALS: BP 115/67; PULSE 67; RESP 16; TEMP 36.4; O2SAT 98
[2023-04-23] MEDS: Lactated Ringers 1,000 ML 125 ML IVCONT ×2 (05:31→13:09)
[2023-04-23 07:33] VITALS: BP 111/69; PULSE 62; RESP 17; TEMP 36.7; O2SAT 97
[2023-04-23] MEDS: Buprenorphine/Naloxone 8/2 mg FILM 1 FILM SUBLINGUAL ×2 (08:40→15:16)
[2023-04-23] MEDS: Milk of Magnesia 30 ML ORAL.SUSP PO (10:33)
[2023-04-23] MEDS: Magnesium Citrate 300 ML SOLUTION PO (10:34)
--- NOTE | 2023-04-23 10:49 | HO.PM.IMPN ---
Subjective Subjective Date of Service: 04/23/23 Review of Systems Follow up constipation abd pain Physical Exam Vital Signs: Vital Signs: Last Vital Signs Temp 98.1 F 04/23/23 07:33 Pulse 62 04/23/23 07:33 Resp 17 04/23/23 07:33 BP 111/69 04/23/23 07:33 Pulse Ox 97 04/23/23 07:33 O2 Del Method Room Air 04/23/23 07:33 BMI result Body Mass Index 21.1 Appearing in no acute distress lung sounds are clear to auscultation heart regular rate rhythm, clear S1, S2 positive bowel sounds, abdomen is soft, nontender neuro patient is alert x3, no focal deficits Objective Data Active Medications Acetaminophen (Acetaminophen 325 Mg Tablet) 650 mg PO Q6H PRN PRN Reason: Pain, Mild (Pain Scale 1-3) Last Admin: 04/22/23 02:11 Dose: 650 mg Documented By: DARCY Buprenorphine/Naloxone (Buprenorphine/Naloxone 8/2 Mg Film) 1 film SUBLINGUAL TID [facility] Last Admin: 04/23/23 08:40 Dose: 1 film Documented By: KIARA Enoxaparin Sodium (Enoxaparin Sodium 40 Mg/0.4 Ml Syringe) 40 mg SUBCUT Q24H [facility] Last Admin: 04/22/23 14:37 Dose: 40 mg Documented By: SAGRARIO Lactated Ringer's (Lr) 1,000 mls @ 125 mls/hr IVCONT .Q8H [facility] Last Admin: 04/23/23 05:31 Dose: 125 mls/hr Documented By: KAYDEN Melatonin (Melatonin 3 Mg Tablet) 6 mg PO BEDTIME PRN PRN Reason: Insomnia Last Admin: 04/22/23 20:19 Dose: 6 mg Documented By: KAYDEN Morphine Sulfate (Morphine Sulfate 2 Mg/Ml Cartridge) 2 mg IVPUSH Q8H PRN; Protocol PRN Reason: Pain, Moderate(Pain Scale 4-6) Ondansetron HCl (Ondansetron Hcl 4 Mg/2 Ml Vial) 4 mg IVPUSH Q6H PRN PRN Reason: Nausea and Vomiting Last Admin: 04/22/23 18:05 Dose: 4 mg Documented By: KIARA Senna (Sennosides 8.6 Mg Tablet) 17.2 mg PO BID [facility] Sodium Chloride (0.9 % Sodium Chloride Flush 3 Ml Syringe) 3 ml IVFLUSH QSHIFT [facility] Last Admin: 04/23/23 07:51 Dose: Not Given Documented By: KIARA Non-Admin Reason: IV Running Labs 04/22/23 04:54 04/22/23 04:54 Microbiology Microbiology Results: Microbiology 04/21/23 11:06 Blood Culture - Preliminary Blood - Venous No growth after 24 hours. 04/21/23 10:52 Blood Culture - Preliminary Blood - Venous No growth after 24 hours. Assessment and Plan (1) Cocaine abuse: Status: Acute Plan 30-year-old man presented to the ER with nausea vomiting and severe constipation. Severe constipation with abd pain Seen on abdominal CT Seen by General surgery with recommendation for fleets enema, still no BM Clear liquid diet if no nausea or vomiting decrease Morphine dose as this can also contribute to constipation IV fluids GoLYTELY prep until bowel movement> patient didnt take due to the taste Mag citrate, senna and colace Intractable nausea and vomiting. Resolved Possibly secondary to constipation antiemetics Substance abuse Urine toxicology positive for PCP, cocaine and marijuana recovery team consult>suboxone DVT prophylaxis Lovenox Attending Dr. Carter Full code Observation Quality Stroke Does the patient have a stroke diagnosis?: No VTE Prior VTE?: No VTE Risk Level:: Medical - moderate - high VTE Device Contraindication: Treatment Not Indicated VTE Drug Contraindication: N/A - Med Ordered
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
[2023-04-23] MEDS: Docusate Sodium 100 MG CAPSULE PO (12:21)
[2023-04-23] MEDS: Sennosides 8.6 MG TABLET 17.2 MG PO (12:21)
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
[2023-04-23] MEDS: Lactulose 20 GM/30 ML SOLUTION PO (13:08)
[2023-04-23] MEDS: Acetaminophen 325 MG TABLET 650 MG PO (13:12)
[2023-04-23 14:37] LABS: Thyroid Stimulating Hormone 0.45 uIU/mL (0.32-4.0)
--- NOTE | 2023-04-23 14:49 | PM.DS ---
DS: Providers Provider Date of Service: 04/23/23 Date of admission: 04/23/23 13:01 Primary care physician: Candi Sumner MD Consults: 04/21/23 14:20 Addiction Medicine Routine Consulting Provider: Addiction Covering Reason for consultation: substance abuse 04/23/23 12:26 Consult to Gastroenterology Routine Consulting Provider: Mohan Puri Reason for consultation: severe constipation DS: Diagnosis Discharge Diagnosis (1) Constipation: Status: Acute DS: Summary Hospital Course Hospital Course: History and physical as per admitting provider. 38-year-old man presented to the ER with complaints of nausea, vomiting and constipation. He was discharged from 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 Abdominal CT showing moderate stool and air throughout the colon and rectal vault similar to previous CT scan. No fever leukocytosis noted, all labs within acceptable limits. Patient given IV fluids, bisacodyl, milk of magnesia and Fleet's enema in the ER. He will be placed on observation for severe constipation. 38-year-old man treated for severe constipation and abdominal pain. Patient reports that he has a history of this. He came to the hospital initially encephalopathic from PCP and cocaine use. He had multiple medications for constipation including fleets enema, bisacodyl suppository, MiraLax, GoLYTELY, Colace, Senokot, magnesium citrate. He did end up having a bowel movement today and abdominal pain has resolved. His diet was advanced and he wished to go home. Patient should continue a good bowel regimen as he does have a history of constipation. Intractable nausea and vomiting. Initially on admission but resolved fairly quickly with antiemetics History of substance abuse urine toxicology positive for PCP, cocaine and marijuana. Seen by recovery team, continued on Suboxone Time Attestation Discharge Coordination Time: discharge time of ____ minutes Quality: Safe Use of Opioids Does Pt have an Active Cancer Diagnosis on the Problem List?: No Quality: Stroke Does the patient have a stroke diagnosis?: No Physical Exam Vital Signs: Vital Signs: Last Vital Signs Temp 98.1 F 04/23/23 07:33 Pulse 62 04/23/23 07:33 Resp 17 04/23/23 07:33 BP 111/69 04/23/23 07:33 Pulse Ox 97 04/23/23 07:33 O2 Del Method Room Air 04/23/23 07:33 BMI result Body Mass Index 21.1 Appearing in no acute distress head is normocephalic atraumatic eyes pupils are PERRLA sclera is anicteric mouth throat mucous membranes are intact and moist neck is supple no lymphadenopathy, no JVD noted lung sounds are clear to auscultation heart regular rate rhythm, clear S1, S2 positive bowel sounds, abdomen is soft, nontender neuro patient is alert x3, no focal deficits DS: Data Data Completed and Pending Labs on day of discharge: Laboratory Results - last 24 hr 04/22/23 04:54 TSH 0.45 Preliminary micro results at discharge 04/21/23 11:06 Blood Culture - Preliminary Blood - Venous No growth after 48 hours. 04/21/23 10:52 Blood Culture - Preliminary Blood - Venous No growth after 48 hours. Discharge Plan Discharge Anticipated Discharge Date/Time: 04/23/23 14:42 Patient Disposition: Home, Self-Care Discharge Diagnosis: Severe constipation Referrals: Candi Sumner MD [Primary Care Provider] - 1 Week Discharge Medications: New acetaminophen [Acetaminophen Extra Strength] 500 mg tablet 1,000 mg PO Q6H PRN (Reason: pain) Qty: 20 0RF Ensure Liquid 1 ea PO TID Qty: 5688 0RF Continued buprenorphine-naloxone [Suboxone] 8-2 mg film 1 film sublingual TID docusate sodium [Colace] 100 mg capsule 100 mg PO DAILY Qty: 10 0RF polyethylene glycol 3350 17 gram/dose powder 17 g PO DAILY PRN (Reason: constipation) Qty: 119 0RF Discharge Orders: Discharge Order (Routine); Ordered 04/23/23 Ordered By: Laura Hood Diet: Advance to usual diet Activity on Discharge: As tolerated Stand Alone Forms: Patient Portal Discharge page Care Plan Goals: Increase protein in diet, drink plenty of water Health Concerns: Severe constipation Plan of Treatment: Take all medications as prescribed Assessment: See discharge summary
--- NOTE | 2023-04-23 14:52 | MHC.CM.PN ---
DP: PT HAS BEEN MEDICALLY CLEARED FOR DC HOME, NO SERVICES. PT HAS OWN RIDE HOME.
--- NOTE | 2023-04-23 16:15 | PC.NURSE ---
Pt with large BM in BR. Small amount of formed with large amount of soft stool. Laura Hood notified. Pt states would like food and to go home.
== END 2023-04-23 16:23 | disposition home or self-care (01) | DRG 254 ==
LOC: HO.ED 13:53 → HO.EDOVER 14:13 → HO.S3 04-22 08:33
PROVIDERS: Internal Medicine; Internal Medicine Gastroenterology; Admitting Provider Nurse Practitioner Acute Care; Emergency Provider Student in an Organized Health Care Education/Training Program; PCP Internal Medicine; Visit Provider Nurse Practitioner Acute Care
DX: K59.03 Drug induced constipation (principal); F11.20 Opioid dependence, uncomplicated; F14.10 Cocaine abuse, uncomplicated; F16.10 Hallucinogen abuse, uncomplicated; Z91.148 Patient's other noncompliance with medication regimen for other reason; Z79.899 Other long term (current) drug therapy
CPT/HCPCS: 36415; 74177; 80048; 80053; 80307; 82947; 83605; 84443; 85025; 85027; 87040; 93005; 99221; 99285; J1650; J2270; J2405; J7120; Q9967

== ENCOUNTER → 2023-04-21 05:22 | Outpatient (BNV) | payer MEDICAID, SELFPAY | PROVIDERS: Emergency Provider Student in an Organized Health Care Education/Training Program; Visit Provider Internal Medicine | DX: K59.00 Constipation, unspecified (principal) | CPT/HCPCS: 93010 ==

== ENCOUNTER → 2023-04-21 14:03 | Outpatient (BNV) | payer MEDICAID, SELFPAY | PROVIDERS: Admitting Provider Nurse Practitioner Acute Care; Emergency Provider Student in an Organized Health Care Education/Training Program; PCP Internal Medicine; Visit Provider Nurse Practitioner Acute Care | DX: F14.10 Cocaine abuse, uncomplicated (principal); F16.10 Hallucinogen abuse, uncomplicated | CPT/HCPCS: 99223; 99232; 99239 ==

== ENCOUNTER → 2023-04-21 14:03 | Outpatient (BNV) | payer OTHER, SELFPAY | PROVIDERS: Admitting Provider Nurse Practitioner Acute Care; Emergency Provider Student in an Organized Health Care Education/Training Program; PCP Internal Medicine; Visit Provider Nurse Practitioner Psychiatric/Mental Health | DX: F16.10 Hallucinogen abuse, uncomplicated (principal); F14.10 Cocaine abuse, uncomplicated | CPT/HCPCS: 99231 ==

== ENCOUNTER → 2023-04-23 13:01 | Outpatient (BNV) | payer MEDICAID, SELFPAY | PROVIDERS: Admitting Provider Nurse Practitioner Acute Care; Emergency Provider Student in an Organized Health Care Education/Training Program; PCP Internal Medicine; Visit Provider Internal Medicine Gastroenterology | DX: K59.03 Drug induced constipation (principal) | CPT/HCPCS: 99222 ==

== ENCOUNTER 2023-05-14 00:18 | Emergency (ER) | payer MEDICAID, SELFPAY ==
[2023-05-14 00:49] VITALS: BP 107/78; PULSE 90; RESP 14; TEMP 36.7; O2SAT 96; BMI 19.8
[2023-05-14] MEDS: Naloxone HCl Nasal 4 MG SPRAY 8 MG NOSTRILALT (01:00)
--- NOTE | 2023-05-14 01:05 | ED.GENADULT ---
HPI - General Adult General Chief complaint: General Medical Stated complaint: doesnt feel well Time Seen by Provider: 05/14/23 01:05 Source: patient Mode of arrival: ambulatory Limitations: no limitations History of Present Illness HPI narrative: Patient history of PCP cocaine marijuana use comes here as he has not feeling good denies any chest pain or shortness of breath denies any use of PCP today Related Data Home Medications Medication Instructions Recorded Confirmed buprenorphine 8 mg-naloxone 2 mg 1 film sublingual TID 04/21/23 04/21/23 sublingual film (Suboxone) Previous Rx's Medication Instructions Recorded acetaminophen 500 mg tablet 1,000 mg (2 x 500 mg) PO Q6H PRN 04/23/23 (Acetaminophen Extra Strength) pain #20 tabs docusate sodium 100 mg capsule 100 mg PO DAILY #10 caps 04/23/23 (Colace) food supplemt, lactose-reduced 1 ea PO TID #5,688 mL 04/23/23 (Ensure oral liquid) polyethylene glycol 3350 17 17 g PO DAILY PRN constipation 04/23/23 gram/dose oral powder #119 grams Allergies Allergy/AdvReac Type Severity Reaction Status Date / Time No Known Allergies Allergy Verified 05/14/23 00:49 [No Known Allergies*] PMF Social History Social History Household Members: Family Household Members Other:: mother Housing: House Do you presently have visiting nurse or other home services: No Alcohol intake: never Patient Tobacco Use Status: Never used Tobacco Substance Use Type: Other service: No Physical Exam ED Vital Signs: Vital Signs - 24 hr 05/14/23 00:49 Temperature 98.0 F Pulse Rate 90 Respiratory Rate 14 Blood Pressure 107/78 Pulse Oximetry 96 Oxygen Delivery Method Room Air BMI result Body Mass Index 19.8 Discharge Plan Discharge Prescriptions: No Action buprenorphine-naloxone [Suboxone] 8-2 mg film 1 film sublingual TID acetaminophen [Acetaminophen Extra Strength] 500 mg tablet 1,000 mg PO Q6H PRN (Reason: pain) Qty: 20 0RF docusate sodium [Colace] 100 mg capsule 100 mg PO DAILY Qty: 10 0RF polyethylene glycol 3350 17 gram/dose powder 17 g PO DAILY PRN (Reason: constipation) Qty: 119 0RF Ensure Liquid 1 ea PO TID Qty: 5688 0RF
[2023-05-14 01:14] VITALS: BP 121/81; PULSE 70; O2SAT 99
--- NOTE | 2023-05-14 01:15 | MHC.EDTECH ---
PATIENT HAD A TUNA FISH SANDWICH AND 360 ML APPLE JUICE FOR SNACK .
--- NOTE | 2023-05-14 01:17 | PC.NURSE ---
Security at bedside, belongings secured in decon.
[2023-05-14 01:20] VITALS: BP 121/87; PULSE 80; RESP 25; O2SAT 97
[2023-05-14 01:24] LABS: Basophils Absolute Auto 0.1 X10*3/uL (0.0-0.2); Basophils Percent Auto 0.8 % (0-2); Eosinophils Absolute Auto 0.3 X10*3/uL (0.0-0.4); Eosinophils Percent Auto 4.1 % (0-4); Hematocrit 42.4 % (42.0-52.0); Hemoglobin 14.7 g/dl (14.0-18.0); Imm Gran Abs Auto 0.02 X10*3/uL (0.00-0.03); Imm Gran Pct Auto 0.2 % (0.0-0.4); Lymphocytes Absolute Auto 2.4 X10*3/uL (1.2-4.9); MANUAL DIFF FLAG NO; Mean Corpuscular HGB Conc 34.7 g/dl (31.0-36.0); Mean Corpuscular Hemoglobin 31.7 pg (27.0-33.0); Mean Corpuscular Volume 91.4 fL (80.0-98.0); Mean Platelet Volume 8.5 fL (9.4-12.4); Monocytes Absolute Auto 0.6 X10*3/uL (0.1-1.2); Monocytes Percent Auto 7.7 % (2-11); Neutrophils Absolute Auto 4.8 x10*3/uL (2.0-8.3); Neutrophils Percent Auto 58.2 % (45-73); Platelet Count 324 X10*3/uL (160-400); Red Blood Count 4.64 X10*6/uL (4.60-5.80); Red Cell Distribution Width 12.5 % (11.0-16.0); White Blood Count 8.3 X10*3/uL (4.8-10.8)
[2023-05-14 01:35] VITALS: PULSE 90; RESP 23; O2SAT 98
[2023-05-14 01:37] VITALS: BP 126/76; PULSE 70; RESP 16; TEMP 36.2; O2SAT 100
[2023-05-14 01:37] LABS: Alanine Aminotransferase 20 U/L (0-40); Albumin Level 4.3 g/dL (3.5-5.0); Alkaline Phosphatase 69 U/L (39-117); Anion Gap 12 (12-20); Aspartate Amino Transferase 21 U/L (5-37); Bilirubin Total 0.4 mg/dL (0.0-1.0); Blood Urea Nitrogen 20 mg/dL (9-16); Calcium 9.5 mg/dL (8.4-10.2); Carbon Dioxide 29 mmol/L (22-29); Chloride 105 mmol/L (96-108); Creatinine Clr Calc Pharmacy 89.2; Estimated Glomerular Filt Rate > 60; Ethanol < 10 mg/dL; Glucose Random 83 mg/dL (60-115); Potassium 4.1 mmol/L (3.3-5.1); Sodium 142 mmol/L (135-145); Total Protein 7.3 g/dL (6.5-8.0)
[2023-05-14 01:38] VITALS: BP 126/76; PULSE 69; RESP 20; O2SAT 100
--- NOTE | 2023-05-14 01:55 | PC.NURSE ---
pt brought from ED leonardo bed to room 20. pt lethargic, IV placed and labs obtained. 0120- pt extremely agitated, screaming, removing medical equipment and attempting to hit staff, security called to bedside. velcro restraints placed. 0135- pt agitated, screaming for cell phone and skittle, called to bedside. plan to remove restraints and d/c restraints. 0138- all 4 restraints removed per provider. pt calm and cooperative, plan for d/c of pt. 0153- pt walked to security to remove belongings from decon, pt calm and cooperative, vss, a&ox4, ambulated with steady gait.
[2023-05-14 02:00] LABS: Amphetamine Screen Urine Not Detected (Not Detect); Barbiturates, Urine Not Detected (Not Detect); Benzodiazepines Screen Urine Not Detected (Not Detect); Cannabinoid Screen Urine Not Detected (Not Detect); Cocaine Screen Urine POSITIVE (Not Detect); Fentanyl, urine Not Detected (Not Detect); Opiate Screen Urine Not Detected (Not Detect); Phencyclidine Screen Urine POSITIVE (Not Detect)
--- NOTE | 2023-05-14 02:22 | ED_ITS ---
HPI - General Adult General Chief complaint: General Medical Stated complaint: doesnt feel well Time Seen by Provider: 05/14/23 01:05 Source: patient Mode of arrival: ambulatory Limitations: no limitations History of Present Illness HPI narrative: Patient's history of cocaine and marijuana take PCP says that he had somebody gave him something to eat prior to arrival and some drink and since then he has not feeling good patient was trying to sleep at the time of triage other provider decided to give Narcan 8 mg patient woke up denies use of opiates very agitated in the ER moderate to go home had to restrained for agitation and self- injury but later after conversation with oralia it was removed Related Data Home Medications Medication Instructions Recorded Confirmed buprenorphine 8 mg-naloxone 2 mg 1 film sublingual TID 04/21/23 04/21/23 sublingual film (Suboxone) Previous Rx's Medication Instructions Recorded acetaminophen 500 mg tablet 1,000 mg (2 x 500 mg) PO Q6H PRN 04/23/23 (Acetaminophen Extra Strength) pain #20 tabs docusate sodium 100 mg capsule 100 mg PO DAILY #10 caps 04/23/23 (Colace) food supplemt, lactose-reduced 1 ea PO TID #5,688 mL 04/23/23 (Ensure oral liquid) polyethylene glycol 3350 17 17 g PO DAILY PRN constipation 04/23/23 gram/dose oral powder #119 grams Allergies Allergy/AdvReac Type Severity Reaction Status Date / Time No Known Allergies Allergy Verified 05/14/23 00:49 [No Known Allergies*] Review of Systems 2 Review of Systems: Yes all other systems are reviewed and are negative PMFSH Past Medical History Medical History (Updated 05/14/23 @ 03:24 by Brodie Bryson MD) Cocaine abuse PCP (phencyclidine) abuse Social History Social History Household Members: Family Household Members Other:: mother Housing: House Do you presently have visiting nurse or other home services: No Alcohol intake: never Patient Tobacco Use Status: Never used Tobacco Substance Use Type: Other Advance Directives: No Advance Directives Information Provided: No service: No Physical Exam ED Vital Signs: Vital Signs - 24 hr 05/14/23 00:49 05/14/23 01:14 05/14/23 01:20 Temperature 98.0 F Pulse Rate 90 70 80 Respiratory Rate 14 25 H Blood Pressure 107/78 121/81 121/87 Pulse Oximetry 96 99 97 Oxygen Delivery Method Room Air Room Air Room Air 05/14/23 01:35 05/14/23 01:37 05/14/23 01:38 Temperature 97.2 F Pulse Rate 90 70 69 Respiratory Rate 23 H 16 20 Blood Pressure 126/76 126/76 Pulse Oximetry 98 100 100 Oxygen Delivery Method Room Air Room Air Room Air BMI result Body Mass Index 19.8 Appearance: Alert. Oriented X3. No acute distress. Eyes: PERRLA, No Nystagmus ENT: Pharynx normal. Oral Mucosa moist Neck: Normal inspection. Neck supple. CVS: Normal heart rate and rhythm. Pulses normal. Respiratory: No respiratory distress. Equal air entry bilateral, no wheezing/rales/rhonchi Abdomen: Soft and nontender. Bowel sounds are present, no mass palpable, no CVA tenderness Skin: Skin warm and dry. Normal skin color. Normal skin turgor. Extremities: No lower extremity edema. No calf tenderness Neuro: Oriented X 3. No motor deficit. No sensory deficit.No cerebellar signs , cranial nerves II-XII intact Medications Administered Discontinued Medications Generic Name Dose Route Start Last Admin Trade Name Freq PRN Reason Stop Dose Admin Naloxone HCl 8 mg 05/14/23 01:15 05/14/23 01:00 Naloxone Hcl Nasal 4 Mg [place] NOSTRILALT 05/14/23 01:16 8 mg ONCE ONE Administration Medical Decision Making Medical Decision Making [facility] Narrative: Patient's urine drug screen showed PCP and cocaine . Patient felt better after staying in the ER had food, drinks in the ED and discharged home walks in his steady gait Differential Diagnosis Differential Diagnoses: The differential diagnosis associated with the presentation includes PCP abuse/substance abuse/cocaine abuse Lab Data [facility] Lab Attestation statement: I reviewed the patient's lab results. 05/14/23 01:19 05/14/23 01:19 Labs: Lab Results 05/14/23 05/14/23 Range/Units 01:19 01:47 WBC 8.3 (4.8-10.8) X10*3/uL RBC 4.64 (4.60-5.80) X10*6/uL Hgb 14.7 (14.0-18.0) g/dl Hct 42.4 (42.0-52.0) % MCV 91.4 (80.0-98.0) fL MCH 31.7 (27.0-33.0) pg MCHC 34.7 (31.0-36.0) g/dl RDW 12.5 (11.0-16.0) % Plt Count 324 (160-400) X10*3/uL MPV 8.5 L (9.4-12.4) fL Immature Gran % (Auto) 0.2 (0.0-0.4) % Neut % (Auto) 58.2 (45-73) % Lymph % (Auto) 29.0 (20-40) % [place] % (Auto) 7.7 (2-11) % Eos % (Auto) 4.1 H (0-4) % Baso % (Auto) 0.8 (0-2) % Lymph # (Auto) 2.4 (1.2-4.9) X10*3/uL [place] # (Auto) 0.6 (0.1-1.2) X10*3/uL Eos # (Auto) 0.3 (0.0-0.4) X10*3/uL Baso # (Auto) 0.1 (0.0-0.2) X10*3/uL Abs Immat Gran (auto) 0.02 (0.00-0.03) X10*3/uL Absolute Neuts (auto) 4.8 (2.0-8.3) x10*3/uL Absolute Nucleated RBC 0.000 (0.0-0.012) X10*3/uL Nucleated RBC % (auto) 0.0 (0.0-0.2) /100WBC Sodium 142 (135-145) mmol/L Potassium 4.1 (3.3-5.1) mmol/L Chloride 105 (96-108) mmol/L Carbon Dioxide 29 (22-29) mmol/L Anion Gap 12 (12-20) BUN 20 H (9-16) mg/dL Creatinine 1.08 (0.5-1.4) mg/dL Estim Creat Clear Calc 89.2 Estimated GFR > 60 Random Glucose 83 (60-115) mg/dL Calcium 9.5 D (8.4-10.2) mg/dL Total Bilirubin 0.4 (0.0-1.0) mg/dL AST 21 (5-37) U/L ALT 20 (0-40) U/L Alkaline Phosphatase 69 (39-117) U/L Total Protein 7.3 (6.5-8.0) g/dL Albumin 4.3 (3.5-5.0) g/dL Urine Opiates Screen Not Detected (Not Detect) Urine Fentanyl Screen Not Detected (Not Detect) Ur Barbiturates Screen Not Detected (Not Detect) Ur Phencyclidine Scrn POSITIVE H (Not Detect) Ur Amphetamines Screen Not Detected (Not Detect) U Benzodiazepines Scrn Not Detected (Not Detect) Urine Cocaine Screen POSITIVE H (Not Detect) U Marijuana (THC) Screen Not Detected (Not Detect) Ethyl Alcohol < 10 mg/dL Discharge Plan Discharge Clinical Impression: Polysubstance abuse Patient Disposition: Home, Self-Care Instructions: Polysubstance Abuse (ED) Additional Instructions: Stop using drugs follow with detox Prescriptions: No Action buprenorphine-naloxone [Suboxone] 8-2 mg film 1 film sublingual TID acetaminophen [Acetaminophen Extra Strength] 500 mg tablet 1,000 mg PO Q6H PRN (Reason: pain) Qty: 20 0RF docusate sodium [Colace] 100 mg capsule 100 mg PO DAILY Qty: 10 0RF polyethylene glycol 3350 17 gram/dose powder 17 g PO DAILY PRN (Reason: constipation) Qty: 119 0RF Ensure Liquid 1 ea PO TID Qty: 5688 0RF
--- NOTE | 2023-05-14 07:28 | ECG_ITS ---
Test Reason : OVERDOSE Blood Pressure : / mmHG Vent. Rate : 074 BPM Atrial Rate : 074 BPM P-R Int : 144 ms QRS Dur : 078 ms QT Int : 360 ms P-R-T Axes : 089 088 071 degrees QTc Int : 399 ms Artifact Poor data quality Normal sinus rhythm Possible Left atrial enlargement Borderline ECG When compared with ECG of 21-APR-2023 05:22, No significant change was found Referred By: Brodie Bryson Electronically Signed By:Adair Caballero
== END 2023-05-14 17:59 | disposition home or self-care (01) ==
PROVIDERS: Emergency Provider Internal Medicine
DX: F14.10 Cocaine abuse, uncomplicated (principal); R94.31 Abnormal electrocardiogram [ECG] [EKG]; R45.1 Restlessness and agitation; Z79.899 Other long term (current) drug therapy
CPT/HCPCS: 36415; 80053; 80307; 85025; 93005; 99284; 99285

== ENCOUNTER → 2023-05-14 07:28 | Outpatient (BNV) | payer MEDICAID, SELFPAY | PROVIDERS: Emergency Provider Internal Medicine; Visit Provider Internal Medicine Cardiovascular Disease | DX: T50.991A Poisoning by other drugs, medicaments and biological substances, accidental (unintentional), initial encounter (principal) | CPT/HCPCS: 93010 ==

== ENCOUNTER 2023-05-18 08:24 | Emergency (ER) | payer MEDICAID, SELFPAY ==
[2023-05-18 08:28] VITALS: BP 130/97; PULSE 61; RESP 18; TEMP 36.5; O2SAT 95; BMI 19.2
--- NOTE | 2023-05-18 08:52 | ED_ITS ---
HPI - General Adult General Chief complaint: General Medical Stated complaint: rash all over Time Seen by Provider: 05/18/23 08:33 Source: patient Mode of arrival: ambulatory History of Present Illness HPI narrative: 38-year-old male history polysubstance use comes in with concerns that he has bugs crawling under his skin on his arms and legs. Patient is otherwise alert and oriented. Related Data Home Medications Medication Instructions Recorded Confirmed buprenorphine 8 mg-naloxone 2 mg 1 film sublingual TID 04/21/23 04/21/23 sublingual film (Suboxone) Previous Rx's Medication Instructions Recorded acetaminophen 500 mg tablet 1,000 mg (2 x 500 mg) PO Q6H PRN 04/23/23 (Acetaminophen Extra Strength) pain #20 tabs docusate sodium 100 mg capsule 100 mg PO DAILY #10 caps 04/23/23 (Colace) food supplemt, lactose-reduced 1 ea PO TID #5,688 mL 04/23/23 (Ensure oral liquid) polyethylene glycol 3350 17 17 g PO DAILY PRN constipation 04/23/23 gram/dose oral powder #119 grams Allergies Allergy/AdvReac Type Severity Reaction Status Date / Time No Known Allergies Allergy Verified 05/14/23 00:49 [No Known Allergies*] Review of Systems Review of Systems: Pertinent positives and negatives as stated in HPI [facility] Past Medical History Source: nursing notes reviewed Medical History Cocaine abuse PCP (phencyclidine) abuse Social History Social History Household Members: Family Household Members Other:: mother Housing: House Do you presently have visiting nurse or other home services: No Alcohol intake: never Patient Tobacco Use Status: Never used Tobacco Substance Use Type: Other Advance Directives: No Advance Directives Information Provided: No service: No Physical Exam ED Vital Signs: Vital Signs - 24 hr 05/18/23 08:28 05/18/23 09:15 Temperature 97.7 F 97.7 F Pulse Rate 61 61 Respiratory Rate 18 18 Blood Pressure 130/97 H 130/97 H Pulse Oximetry 95 95 Oxygen Delivery Method Room Air Room Air BMI result Body Mass Index 19.2 VITAL SIGNS: Reviewed. GENERAL: Well developed, well nourished, in no acute distress. HEAD: Normocephalic/atraumatic EYES: PERRLA, EOMI EARS: Ext canals without abnormality NOSE: Nares patent bilateral OROPHARYNX: no oral lesions noted, posterior pharynx clear NECK: Supple, no adenopathy LUNGS: Normal breath sounds. No adventitious sounds or accessory muscle use. SpO2<95> CARDIOVASCULAR: Regular rate and rhythm without noted murmurs ABDOMEN: Soft, non-tender, non-distended with bowel sounds. MUSCULOSKELETAL: No tenderness, deformities, or effusions noted on gross inspection. EXTREMITIES: No cyanosis, clubbing or edema. SKIN: Inspection of the skin reveals no rashes, bug bites NEUROLOGIC: Alert and oriented x 4. Strength and sensation to light touch were grossly intact x 4. Medications Administered Discontinued Medications Generic Name Dose Route Start Last Admin Trade Name Freq PRN Reason Stop Dose Admin Diphenhydramine HCl 25 mg 05/18/23 08:52 05/18/23 09:15 Diphenhydramine Hcl 25 Mg Capsule PO 05/18/23 08:53 Not Given ONCE ONE Medical Decision Making Medical Decision Making MDM Narrative: 38-year-old male with history and clinical presentation most consistent with polysubstance use induced formication, there is no evidence of rash, bug bites, I have no clinical suspicion for scabies or bedbugs. Patient was offered Benadryl which he declined, he began throwing things around in the room, informed that he was discharged and required security to escort him off the hospital grounds. Differential Diagnosis Differential Diagnoses: The differential diagnosis associated with the presentation includes Please see the discussion above Admission/Observation Consideration of admission/observation: Escalation of care including admission/observation considered Please see the discussion above External Record Review External record reviewed: Outpatient record and Prior outpatient labs Critical Care Time Critical Care Time Critical Care Time: Yes Total Critical Care Time: 30 Attestation: I personally attest to this time spent taking care of the patient. Discharge Plan Discharge Clinical Impression: Formication Patient Disposition: Home, Self-Care Instructions: Paresthesia (ED) Additional Instructions: Please follow-up with your primary care doctor in the next 3-4 days. Prescriptions: No Action buprenorphine-naloxone [Suboxone] 8-2 mg film 1 film sublingual TID acetaminophen [Acetaminophen Extra Strength] 500 mg tablet 1,000 mg PO Q6H PRN (Reason: pain) Qty: 20 0RF docusate sodium [Colace] 100 mg capsule 100 mg PO DAILY Qty: 10 0RF polyethylene glycol 3350 17 gram/dose powder 17 g PO DAILY PRN (Reason: constipation) Qty: 119 0RF Ensure Liquid 1 ea PO TID Qty: 5688 0RF Interventions: ED Discharge Assessment Last Done: 05/18/23 09:15 Discharge Date/Time: 05/18/23 09:19
[2023-05-18 09:15] VITALS: BP 130/97; PULSE 61; RESP 18; TEMP 36.5; O2SAT 95
== END 2023-05-18 09:19 | disposition home or self-care (01) ==
PROVIDERS: Emergency Provider Student in an Organized Health Care Education/Training Program; PCP Internal Medicine
DX: R20.2 Paresthesia of skin (principal)
CPT/HCPCS: 99283

== ENCOUNTER 2023-07-09 06:11 | Emergency (ER) | payer MEDICAID, SELFPAY ==
[2023-07-09 06:24] VITALS: BP 159/92; PULSE 115; RESP 17; TEMP 37.1; O2SAT 99
[2023-07-09 06:34] VITALS: BMI 22.4
--- NOTE | 2023-07-09 06:34 | MHC.EDTECH ---
Patient is change management lead into hospital attire ED security at bedside with this Tech All belonging are locked in decon
--- NOTE | 2023-07-09 06:57 | ED_ITS ---
HPI - General Adult General Chief complaint: Behavioral Concerns Stated complaint: PCP USE Time Seen by Provider: 07/09/23 06:36 Source: patient and EMS Mode of arrival: EMS Limitations: no limitations History of Present Illness ED Provider: Angelique Perez PA-C HPI narrative: Patient is a 38 year old assigned male at with a history of PCP use presenting to the emergency department today after an angry outburst at home. Patient states that he was trying to get ready to go to court when his mother stated that it was too early to get ready and an argument ensued. Patient states that he has recently used PCP but he is not under the influence now. Patient states that he has no suicidal or homicidal ideation. Patient states that he felt he needed to call an ambulance himself to get transported from the house due to the argument. Patient denies any dizziness, lightheadedness, abdominal pain, nausea, vomiting, fever, chills, blurry vision, double vision, loss of vision, chest pain, difficulty breathing, shortness of breath, back pain, night sweats, pain with urination, increased urinary frequency, increased urinary urgency, blood in his urine or stool, syncope or a near syncopal episode, recent trauma or falls, bowel incontinence, bladder incontinence, bowel retention, bladder retention, or any other complaints at this time. Relieving factors: none Exacerbating factors: none Associated symptoms: denies other symptoms Treatments prior to arrival: none Related Data Home Medications ?Medication ?Instructions ?Recorded ?Confirmed buprenorphine 8 mg-naloxone 2 mg 1 film sublingual TID 04/21/23 04/21/23 sublingual film (Suboxone) Previous Rx's ?Medication ?Instructions ?Recorded acetaminophen 500 mg tablet 1,000 mg (2 x 500 mg) PO Q6H PRN 04/23/23 (Acetaminophen Extra Strength) pain #20 tabs docusate sodium 100 mg capsule 100 mg PO DAILY #10 caps 04/23/23 (Colace) food supplemt, lactose-reduced 1 ea PO TID #5,688 mL 04/23/23 (Ensure oral liquid) polyethylene glycol 3350 17 17 g PO DAILY PRN constipation 04/23/23 gram/dose oral powder #119 grams Allergies Allergy/AdvReac Type Severity Reaction Status Date / Time No Known Allergies Allergy Verified 07/09/23 06:36 [No Known Allergies*] Review of Systems Constitutional: Constitutional: Reports no additional constitutional complaints, Denies chills, Denies fever(s) and Denies night sweats Eyes: Eyes: Reports no additional eye complaints, Denies blurry vision, Denies change in vision, Denies diplopia, Denies eye discharge, Denies loss of vision and Denies eye pain ENT: Denies dizziness Cardiovascular: Cardiovascular: Reports no additional cardiovascular complaints, Denies chest pain, Denies lightheadedness, Denies Loss of Consciousness and Denies dyspnea Respiratory: Respiratory: Reports no additional respiratory complaints and Denies dyspnea Gastrointestinal: Gastrointestinal: Reports no additional gastrointestinal complaints, Denies abdominal pain, Denies melena, Denies hematochezia, Denies change in bowel habits and Denies change in stool character Genitourinary: Genitourinary: Reports no additional male genitourinary complaints, Denies hematuria, Denies oliguria, Denies difficulty urinating, Denies dysuria, Denies urinary frequency, Denies urinary hesitancy, Denies urinary incontinence and Denies urinary urgency Musculoskeletal: Musculoskeletal: Reports no additional musculoskeletal complaints, Denies numbness and Denies tingling Neurologic: Denies dizziness, Denies loss of vision, Denies numbness and Denies tingling Psychiatric: Psychiatric: Reports no additional psychiatric complaints Endocrine: Endocrine: Reports no additional endocrine complaints Hematologic/Lymphatic: Hematologic/Lymphatic: Reports no additional hematologic/lymphatic complaints Allergic/Immunologic: Allergic/Immunologic: Reports no additional allergic/imm unologic complaints [facility] Past Medical History Attestation statement: The following information was validated with the patient. Source: old records reviewed and nursing notes reviewed Medical History Cocaine abuse PCP (phencyclidine) abuse Constipation Social History Social History Household Members: Family Household Members Other:: mother Housing: House Do you presently have visiting nurse or other home services: No Alcohol intake: never Patient Tobacco Use Status: Never used Tobacco Smoked in Last 30 Days: Yes Use of substances other than those prescribed or required for medical reasons: Yes Substance Use Type: Other Substance Use Type Other:: pcp Advance Directives: No Advance Directives Information Provided: No service: No Physical Exam ED Vital Signs: Vital Signs - 24 hr 07/09/23 06:24 Temperature 98.8 F Pulse Rate 115 H Respiratory Rate 17 Blood Pressure 159/92 H Pulse Oximetry 99 Oxygen Delivery Method Room Air BMI result Body Mass Index 22.4 Const General: cooperative, no acute distress, alert and awake Nutritional Appearance: well nourished Orientation/consciousness: patient oriented x3 Limitations: no limitations HENMT Head: Yes normal to inspection and Yes atraumatic Ears: hearing grossly normal bilaterally and external ears normal General nose exam: Normal external nose present, no nasal discharge noted and no epistaxis Face and sinus: Yes normal facial exam, No abrasion and No laceration Mouth: Normal oral and palatal mucosa present, no drooling and no muffled voice Eyes General: appearance normal, both eyes and all related structures Periorbital: periorbital findings normal Eyelids: Yes eyelids normal Conjunctivae: conjunctivae normal Pupils: Equal, round and reactive pupils present EOM: EOMs intact bilaterally Neck Neck: Yes normal visual inspection, Yes full ROM and Yes no lymphadenopathy Chest Chest palpation & inspection: normal inspection of the chest Resp Effort & Inspection: normal respiratory effort and able to speak in complete sentences GI Inspection: Yes normal to inspection Neuro General: patient oriented x3 and moves all extremities Cranial nerves: Yes Equal, round and reactive pupils present Cognition (Neuro): normal cognition Motor exam (neuro): 5/5 motor strength present throughout Sensory Exam: Normal double simultaneous stimulation for sensation Coordination: [id number] test normal Extrem General: Yes normal to inspection, Yes full ROM and Yes capillary refill normal Psych Appearance: grossly normal Mental Status: mental status grossly normal Affect: normal affect Attitude: cooperative Thought process: Normal thought process present Thought content: Normal thought content present Insight: Good insight present (Psych) Medical Decision Making Medical Decision Making MDM Narrative: Patient is a 38 year old assigned male at with a history of PCP use presenting to the emergency department today after an argument. Patient's physical exam was unremarkable. I explained my physical exam findings to the patient. I answered all questions asked by the patient. Patient was offered an addiction medicine consult however, the patient declined. I stressed the importance of the patient taking his medication as prescribed. I stressed the importance of the patient following up with his primary care provider. I stressed the importance of the patient returning to the emergency department immediately if he were to develop any dizziness, shortness of breath, difficulty breathing, chest pain, blurry vision, loss of vision, nausea, vomiting, abdominal pain, fever, chills, back pain, or any other complaints. Patient verbalized agreement and understanding with this treatment plan and discharge. Differential Diagnosis Differential Diagnoses: The differential diagnosis associated with the presentation includes PCP use Aggression Verbal argument Admission/Observation Consideration of admission/observation: Escalation of care including admission/observation considered Patient would have been admitted to the hospital had his clinical presentation warranted hospital admission. Independent Historian Clinical information obtained from an independent historian. History obtained from or confirmed by: EMS (EMS provided additional history and confirmed the history provided by the patient.) Discharge Plan Discharge Clinical Impression: PCP (phencyclidine) abuse Patient Disposition: Home, Self-Care Additional Instructions: Please refrain from PCP use. Follow up with your primary care provider. Return to the emergency department immediately if you develop any dizziness, shortness of breath, difficulty breathing, chest pain, blurry vision, loss of vision, nausea, vomiting, abdominal pain, fever, chills, back pain, or any other compl aints. Prescriptions: No Action buprenorphine-naloxone [Suboxone] 8-2 mg film 1 film sublingual TID acetaminophen [Acetaminophen Extra Strength] 500 mg tablet 1,000 mg PO Q6H PRN (Reason: pain) Qty: 20 0RF docusate sodium [Colace] 100 mg capsule 100 mg PO DAILY Qty: 10 0RF polyethylene glycol 3350 17 gram/dose powder 17 g PO DAILY PRN (Reason: constipation) Qty: 119 0RF Ensure Liquid 1 ea PO TID Qty: 5688 0RF Referrals: [facility] [place]] [facility] [[place] [facility]] (Call to establish and follow up with a primary care provider. If you already have a primary care provider, please follow up with them.) [facility] [[facility] Group] Stand Alone Forms: Work/School Release Print Language: Urdu
== END 2023-07-09 07:35 | disposition home or self-care (01) ==
PROVIDERS: Emergency Provider Emergency Medicine
DX: F16.10 Hallucinogen abuse, uncomplicated (principal)
CPT/HCPCS: 99283

== ENCOUNTER 2023-07-13 15:07 | Emergency (ER) | payer MEDICAID, SELFPAY ==
--- NOTE | ~2023-07-13 | XR_ITS ---
EXAMINATION: XR ELBOW, RIGHT CLINICAL INFORMATION: Pain after fall COMPARISON: None available. TECHNIQUE: AP, lateral, and oblique views of the right elbow. FINDINGS: The bones and soft tissues are normal. No fracture or joint effusion. Alignment is anatomic. Joint spaces are maintained. XR/XR elbow RT 2V IMPRESSION: Normal right elbow.
[2023-07-13 15:33] VITALS: BP 125/85; PULSE 64; RESP 18; TEMP 36.6; O2SAT 100; BMI 18.5
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
== END 2023-07-13 22:42 | disposition left against medical advice (07) ==
LOC: HO.ED 18:41
PROVIDERS: Emergency Provider Emergency Medicine
DX: Z04.3 Encounter for examination and observation following other accident (principal); M25.521 Pain in right elbow; Z53.21 Procedure and treatment not carried out due to patient leaving prior to being seen by health care provider
CPT/HCPCS: 73070; 99281; 99283

== ENCOUNTER 2023-07-14 02:26 | Emergency (ER) | payer MEDICAID, SELFPAY ==
--- NOTE | ~2023-07-14 | CT_ITS ---
EXAMINATION: CT HEAD WITHOUT CONTRAST CT FACIAL BONES WITHOUT CONTRAST CT CERVICAL SPINE WITHOUT CONTRAST CLINICAL INFORMATION: Trauma. Pain. COMPARISON: None available. TECHNIQUE: Contiguous axial imaging was performed through the head, facial bones and cervical without intravenous administration of contrast. Sagittal and coronal reformatted images also obtained. This CT examination was performed using dose optimization techniques as appropriate, variously including the following: *Automated exposure control *Adjustment of mA and/or kV according to patient size (this includes techniques or standardized protocols for targeted exams where dose is matched to indication/reason for exam; i.e. extremities or head) *Use of iterative reconstruction technique DLP: 1652 mGy-cm FINDINGS: HEAD: The lateral, third and fourth ventricles are normally outlined. The cortical sulci and basal cisterns are normally outlined as well. There is no acute territorial defect, hemorrhage or midline shift. The extra-axial spaces are unremarkable. Calvarium/scalp: The calvarium is intact. There is left inferior frontal/supraorbital soft tissue swelling with a large laceration. FACIAL BONES: Motion slightly limits evaluation. There is no evidence for fracture. There is left orbital/periorbital soft tissue swelling with a large laceration. The maxillofacial sinuses and the mastoids are clear. Orbital structures are unremarkable. CERVICAL SPINE: The alignment is within normal limits. The disc spaces are maintained. The spinal canal and neuroforamen are patent. The bone mineralization is normal. There is no fracture. The soft tissues are unremarkable. The visualized upper lung sanches are clear. CT/CT cervical spine wo IV con IMPRESSION: 1. No acute intracranial pathology. 2. Left orbital/periorbital soft tissue swelling with a large laceration. 3. No acute facial bone fracture. 4. No acute cervical spine abnormality.
--- NOTE | ~2023-07-14 | CT_ITS ---
EXAMINATION: CT HEAD WITHOUT CONTRAST CT FACIAL BONES WITHOUT CONTRAST CT CERVICAL SPINE WITHOUT CONTRAST CLINICAL INFORMATION: Trauma. Pain. COMPARISON: None available. TECHNIQUE: Contiguous axial imaging was performed through the head, facial bones and cervical without intravenous administration of contrast. Sagittal and coronal reformatted images also obtained. This CT examination was performed using dose optimization techniques as appropriate, variously including the following: *Automated exposure control *Adjustment of mA and/or kV according to patient size (this includes techniques or standardized protocols for targeted exams where dose is matched to indication/reason for exam; i.e. extremities or head) *Use of iterative reconstruction technique DLP: 1652 mGy-cm FINDINGS: HEAD: The lateral, third and fourth ventricles are normally outlined. The cortical sulci and basal cisterns are normally outlined as well. There is no acute territorial defect, hemorrhage or midline shift. The extra-axial spaces are unremarkable. Calvarium/scalp: The calvarium is intact. There is left inferior frontal/supraorbital soft tissue swelling with a large laceration. FACIAL BONES: Motion slightly limits evaluation. There is no evidence for fracture. There is left orbital/periorbital soft tissue swelling with a large laceration. The maxillofacial sinuses and the mastoids are clear. Orbital structures are unremarkable. CERVICAL SPINE: The alignment is within normal limits. The disc spaces are maintained. The spinal canal and neuroforamen are patent. The bone mineralization is normal. There is no fracture. The soft tissues are unremarkable. The visualized upper lung sanches are clear. CT/CT facial bones wo IV con IMPRESSION: 1. No acute intracranial pathology. 2. Left orbital/periorbital soft tissue swelling with a large laceration. 3. No acute facial bone fracture. 4. No acute cervical spine abnormality.
--- NOTE | 2023-07-14 02:28 | PC.NURSE ---
2x iv established pt placed on heart monitor. md at bedside for assessment.
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
[2023-07-14 02:34] VITALS: BP 171/70; PULSE 61; RESP 20; O2SAT 99; BMI 23.0
[2023-07-14 02:37] LABS: MANUAL DIFF FLAG NO
[2023-07-14 02:38] LABS: Basophils Absolute Auto 0.1 X10*3/uL (0.0-0.2); Basophils Percent Auto 0.9 % (0-2); Eosinophils Absolute Auto 0.2 X10*3/uL (0.0-0.4); Hematocrit 43.4 % (42.0-52.0); Hemoglobin 14.8 g/dl (14.0-18.0); Imm Gran Abs Auto 0.03 X10*3/uL (0.00-0.03); Imm Gran Pct Auto 0.3 % (0.0-0.4); Lymphocytes Percent Auto 28.5 % (20-40); Mean Corpuscular HGB Conc 34.1 g/dl (31.0-36.0); Mean Corpuscular Hemoglobin 31.3 pg (27.0-33.0); Mean Corpuscular Volume 91.8 fL (80.0-98.0); Mean Platelet Volume 8.6 fL (9.4-12.4); Monocytes Absolute Auto 0.6 X10*3/uL (0.1-1.2); Monocytes Percent Auto 5.7 % (2-11); Neutrophils Absolute Auto 6.5 x10*3/uL (2.0-8.3); Neutrophils Percent Auto 62.6 % (45-73); Platelet Count 337 X10*3/uL (160-400); Red Blood Count 4.73 X10*6/uL (4.60-5.80); Red Cell Distribution Width 11.9 % (11.0-16.0); White Blood Count 10.4 X10*3/uL (4.8-10.8)
[2023-07-14 02:52] VITALS: BP 136/54; PULSE 57; RESP 15; O2SAT 100
[2023-07-14 02:52] LABS: Prothrombin Time 11.9 SEC (11.1-13.3)
[2023-07-14 02:54] LABS: Ethanol < 10 mg/dL
--- NOTE | 2023-07-14 02:54 | PC.NURSE ---
this rn assumed care of pt, pt placed in room after CT scan. Pt a&ox4 and alert at this time. pt noted to have large chunk of skin missing from the left side of forehead, small laceration to the upper lip and gash to the left cheek. bandages placed to control bleeding. provider at bedside. pt normal sinus on tele 56-58. bilateral 18G placed in AC.
[2023-07-14 02:55] LABS: Partial Thromboplastin Time 30.5 SEC (26.0-36.8)
[2023-07-14 02:56] LABS: Alanine Aminotransferase 26 U/L (0-40); Albumin Level 4.4 g/dL (3.5-5.0); Alkaline Phosphatase 60 U/L (39-117); Anion Gap 16 (12-20); Aspartate Amino Transferase 40 U/L (5-37); Bilirubin Total 0.7 mg/dL (0.0-1.0); Blood Urea Nitrogen 18 mg/dL (9-16); Calcium 9.5 mg/dL (8.4-10.2); Carbon Dioxide 26 mmol/L (22-29); Chloride 106 mmol/L (96-108); Creatinine Clr Calc Pharmacy 91.7; Estimated Glomerular Filt Rate > 60; Glucose Random 81 mg/dL (60-115); Magnesium 2.3 mg/dL (1.6-2.6); Potassium 3.7 mmol/L (3.3-5.1); Sodium 144 mmol/L (135-145); Total Protein 7.6 g/dL (6.5-8.0)
[2023-07-14 04:00] VITALS: BP 134/95; PULSE 68; RESP 15; TEMP 36.8; O2SAT 99
[2023-07-14] MEDS: Lidocaine HCl 1 % MPF 5 ML VIAL INFILTRATI ×2 (05:03)
--- NOTE | 2023-07-14 05:03 | PC.NURSE ---
provider at bedside to place lorena in pt head.
[2023-07-14 05:43] VITALS: BP 142/95; PULSE 74; RESP 14; TEMP 36.6; O2SAT 99
--- NOTE | 2023-07-14 06:21 | PC.NURSE ---
pt ambulated to bathroom with steady gait at this time. pt tolerated well.
[2023-07-14] MEDS: Acetaminophen 325 MG TABLET 975 MG PO (06:42)
[2023-07-14 06:52] VITALS: BP 142/95; PULSE 74; RESP 14; TEMP 36.6; O2SAT 99
== END 2023-07-14 06:52 | disposition home or self-care (01) ==
PROVIDERS: Emergency Provider Emergency Medicine Emergency Medical Services
DX: S01.112A Laceration without foreign body of left eyelid and periocular area, initial encounter (principal); S00.81XA Abrasion of other part of head, initial encounter; S09.90XA Unspecified injury of head, initial encounter; V19.9XXA Pedal cyclist (driver) (passenger) injured in unspecified traffic accident, initial encounter; Y93.55 Activity, bike riding; Y92.410 Unspecified street and highway as the place of occurrence of the external cause; Y99.9 Unspecified external cause status
CPT/HCPCS: 12052; 36415; 70450; 70486; 72125; 80053; 80307; 83735; 85025; 85610; 85730; 99284

== ENCOUNTER 2023-07-21 17:58 | Emergency (ER) | payer MEDICAID, SELFPAY ==
--- NOTE | ~2023-07-21 | XR_ITS ---
EXAMINATION: XR ABDOMEN KUB CLINICAL INDICATION: Small bowel obstruction. COMPARISON: CT abdomen 04/21/2023. TECHNIQUE: AP view of the abdomen. FINDINGS: Postsurgical changing sutures are seen in left midabdomen from previous intervention. There is scattered stool and gas seen in colon without distention. The small bowel loops are normal caliber. Appendix is not seen. There is no organomegaly. No gross bony abnormality seen. XR/XR KUB IMPRESSION: Moderate constipation. No acute process seen.
[2023-07-21 18:10] VITALS: BP 118/85; PULSE 81; RESP 16; TEMP 36.9; O2SAT 98; BMI 18.9
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
[2023-07-21 19:23] LABS: MANUAL DIFF FLAG NO
[2023-07-21 19:30] LABS: Basophils Absolute Auto 0.1 X10*3/uL (0.0-0.2); Basophils Percent Auto 0.5 % (0-2); Eosinophils Absolute Auto 0.2 X10*3/uL (0.0-0.4); Eosinophils Percent Auto 2.4 % (0-4); Hematocrit 38.6 % (42.0-52.0); Hemoglobin 13.1 g/dl (14.0-18.0); Imm Gran Abs Auto 0.02 X10*3/uL (0.00-0.03); Imm Gran Pct Auto 0.2 % (0.0-0.4); Lymphocytes Percent Auto 19.6 % (20-40); Mean Corpuscular HGB Conc 33.9 g/dl (31.0-36.0); Mean Corpuscular Hemoglobin 31.9 pg (27.0-33.0); Mean Corpuscular Volume 93.9 fL (80.0-98.0); Mean Platelet Volume 8.5 fL (9.4-12.4); Monocytes Absolute Auto 0.8 X10*3/uL (0.1-1.2); Monocytes Percent Auto 7.9 % (2-11); Neutrophils Percent Auto 69.4 % (45-73); Platelet Count 300 X10*3/uL (160-400); Red Blood Count 4.11 X10*6/uL (4.60-5.80); White Blood Count 10.1 X10*3/uL (4.8-10.8)
[2023-07-21 19:46] LABS: Alanine Aminotransferase 19 U/L (0-40); Albumin Level 4.1 g/dL (3.5-5.0); Alkaline Phosphatase 66 U/L (39-117); Anion Gap 16 (12-20); Aspartate Amino Transferase 28 U/L (5-37); Bilirubin Total 0.2 mg/dL (0.0-1.0); Blood Urea Nitrogen 16 mg/dL (9-16); Calcium 9.6 mg/dL (8.4-10.2); Carbon Dioxide 24 mmol/L (22-29); Chloride 107 mmol/L (96-108); Creatinine Clr Calc Pharmacy 121.1; Estimated Glomerular Filt Rate > 60; Glucose Random 92 mg/dL (60-115); Potassium 4.1 mmol/L (3.3-5.1); Sodium 143 mmol/L (135-145)
[2023-07-21 23:47] VITALS: BP 108/57; PULSE 60; RESP 16; TEMP 36.8; O2SAT 97
[2023-07-22] MEDS: Milk of Magnesia 30 ML ORAL.SUSP PO (00:23)
[2023-07-22] MEDS: bisacodyL 5 MG TABLET.DR 10 MG PO (00:23)
[2023-07-22 00:40] VITALS: BP 108/57; PULSE 60; RESP 16; TEMP 36.8; O2SAT 97
== END 2023-07-22 00:44 | disposition home or self-care (01) ==
PROVIDERS: Physician Assistant; Emergency Provider Internal Medicine; PCP Internal Medicine
DX: K59.00 Constipation, unspecified (principal); Z48.02 Encounter for removal of sutures
CPT/HCPCS: 36415; 74018; 80053; 85025; 99283

== ENCOUNTER 2023-07-26 05:11 | Emergency (ER) | payer MEDICAID, SELFPAY ==
[2023-07-26 05:20] VITALS: BP 128/81; PULSE 87; RESP 14; TEMP 36.7; O2SAT 100; BMI 19.1
--- NOTE | 2023-07-26 05:44 | PC.NURSE ---
This RN called to waiting room by registration staff d/t patien being on the floor. Pt arousable, denies fall. Pt states he was layimng on loor because he was tired. Pt denies any pain, pt assisted up off the floor and put in wheelchair and brought back to custom furrier for room placement.
--- NOTE | 2023-07-26 05:49 | MHC.EDTECH ---
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
[2023-07-26 05:53] VITALS: BP 125/83; PULSE 74; RESP 16; TEMP 36.6; O2SAT 97
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
[2023-07-26 06:10] LABS: Glucose, Whole Blood 117 mg/dL (60-115)
--- NOTE | 2023-07-26 06:56 | PC.NURSE ---
[facility] in [facility]
[2023-07-26 08:50] VITALS: BP 95/70; PULSE 100; RESP 28; TEMP 36.7; O2SAT 95
--- NOTE | 2023-07-26 10:12 | PC.NURSE ---
Pt continues to sleep, will not answer any questions. Breathing even and unlabored.
[2023-07-26 10:59] VITALS: BP 131/82; PULSE 68; RESP 15; TEMP 36.6; O2SAT 98
[2023-07-26 12:45] VITALS: BP 124/72; PULSE 78; RESP 16; TEMP 37.3; O2SAT 99
== END 2023-07-26 12:47 | disposition home or self-care (01) ==
PROVIDERS: Emergency Medicine Emergency Medical Services; Emergency Provider Emergency Medicine Emergency Medical Services; PCP Internal Medicine
DX: Z48.02 Encounter for removal of sutures (principal); Z79.899 Other long term (current) drug therapy
CPT/HCPCS: 82947; 99282; 99284

== ENCOUNTER 2023-07-30 23:24 | Emergency (ER) | payer MEDICAID, SELFPAY ==
--- NOTE | ~2023-07-30 | CT_ITS ---
EXAMINATION: CT HEAD WITHOUT CONTRAST CT CERVICAL SPINE WITHOUT CONTRAST CLINICAL INFORMATION: Fall. Altered mental status. COMPARISON: None available. TECHNIQUE: Contiguous axial imaging was performed from the skull base to vertex without intravenous administration of contrast. This CT examination was performed using dose optimization techniques as appropriate, variously including the following: *Automated exposure control *Adjustment of mA and/or kV according to patient size (this includes techniques or standardized protocols for targeted exams where dose is matched to indication/reason for exam; i.e. extremities or head) *Use of iterative reconstruction technique DLP: 1071 mGy-cm FINDINGS: The lateral, third and fourth ventricles are normally outlined. The cortical sulci and basal cisterns are normally outlined as well. There is no acute territorial defect, hemorrhage or midline shift. The extra-axial spaces are unremarkable. Calvarium/scalp: Intact. Maxillofacial sinuses and mastoids: There is ethmoid and left maxillary sinus mucosal thickening. The mastoids are clear. Cervical spine: The alignment is normal. The disc spaces are maintained. The spinal canal and neuroforamen are patent. The bone mineralization is normal. No fracture is seen. Soft tissues are unremarkable. The visualized upper lung sanches are clear. CT/CT head/brain wo IV con IMPRESSION: 1. No acute intracranial pathology. 2. No evidence of acute fracture or traumatic subluxation of the cervical spine.
--- NOTE | ~2023-07-30 | CT_ITS ---
EXAMINATION: CT HEAD WITHOUT CONTRAST CT CERVICAL SPINE WITHOUT CONTRAST CLINICAL INFORMATION: Fall. Altered mental status. COMPARISON: None available. TECHNIQUE: Contiguous axial imaging was performed from the skull base to vertex without intravenous administration of contrast. This CT examination was performed using dose optimization techniques as appropriate, variously including the following: *Automated exposure control *Adjustment of mA and/or kV according to patient size (this includes techniques or standardized protocols for targeted exams where dose is matched to indication/reason for exam; i.e. extremities or head) *Use of iterative reconstruction technique DLP: 1071 mGy-cm FINDINGS: The lateral, third and fourth ventricles are normally outlined. The cortical sulci and basal cisterns are normally outlined as well. There is no acute territorial defect, hemorrhage or midline shift. The extra-axial spaces are unremarkable. Calvarium/scalp: Intact. Maxillofacial sinuses and mastoids: There is ethmoid and left maxillary sinus mucosal thickening. The mastoids are clear. Cervical spine: The alignment is normal. The disc spaces are maintained. The spinal canal and neuroforamen are patent. The bone mineralization is normal. No fracture is seen. Soft tissues are unremarkable. The visualized upper lung sanches are clear. CT/CT cervical spine wo IV con IMPRESSION: 1. No acute intracranial pathology. 2. No evidence of acute fracture or traumatic subluxation of the cervical spine.
[2023-07-30 23:57] VITALS: BP 117/68; PULSE 89; RESP 18; TEMP 36.6; O2SAT 99; BMI 19.2
--- NOTE | 2023-07-31 00:24 | MHC.EDTECH ---
Patient was changed over into hospital attire,all belongings list completed and placed in [facility]
[2023-07-31 03:05] VITALS: BP 128/74; PULSE 64; RESP 16; TEMP 36.6; O2SAT 100
--- NOTE | 2023-07-31 03:08 | MHC.EDTECH ---
Hourly rounds and vitals completed,patient is resting at this time.
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
[2023-07-31 05:05] VITALS: BP 113/71; PULSE 63; RESP 16; TEMP 37; O2SAT 97
--- NOTE | 2023-07-31 05:06 | MHC.EDTECH ---
Hourly rounds and vitals completed,labs drawn and sent to lab,patient is unable to give a urine sample at this time,will re-attempt.
[2023-07-31 05:07] LABS: Basophils Absolute Auto 0.1 X10*3/uL (0.0-0.2); Basophils Percent Auto 0.7 % (0-2); Eosinophils Absolute Auto 0.3 X10*3/uL (0.0-0.4); Eosinophils Percent Auto 3.1 % (0-4); Hematocrit 37.3 % (42.0-52.0); Hemoglobin 12.9 g/dl (14.0-18.0); Imm Gran Abs Auto 0.02 X10*3/uL (0.00-0.03); Imm Gran Pct Auto 0.2 % (0.0-0.4); Lymphocytes Absolute Auto 2.2 X10*3/uL (1.2-4.9); Lymphocytes Percent Auto 25.2 % (20-40); MANUAL DIFF FLAG NO; Mean Corpuscular HGB Conc 34.6 g/dl (31.0-36.0); Mean Corpuscular Hemoglobin 31.3 pg (27.0-33.0); Mean Corpuscular Volume 90.5 fL (80.0-98.0); Mean Platelet Volume 7.7 fL (9.4-12.4); Monocytes Absolute Auto 0.9 X10*3/uL (0.1-1.2); Monocytes Percent Auto 9.8 % (2-11); Neutrophils Absolute Auto 5.4 x10*3/uL (2.0-8.3); Platelet Count 273 X10*3/uL (160-400); Red Blood Count 4.12 X10*6/uL (4.60-5.80); White Blood Count 8.8 X10*3/uL (4.8-10.8)
[2023-07-31 05:21] LABS: Alanine Aminotransferase 20 U/L (0-40); Albumin Level 3.6 g/dL (3.5-5.0); Alkaline Phosphatase 58 U/L (39-117); Anion Gap 12 (12-20); Aspartate Amino Transferase 34 U/L (5-37); Bilirubin Direct 0.1 mg/dL (0.0-0.5); Bilirubin Total 0.3 mg/dL (0.0-1.0); Blood Urea Nitrogen 16 mg/dL (9-16); Carbon Dioxide 26 mmol/L (22-29); Chloride 107 mmol/L (96-108); Creatinine Clr Calc Pharmacy 111.4; Estimated Glomerular Filt Rate > 60; Ethanol < 10 mg/dL; Glucose Random 84 mg/dL (60-115); Potassium 3.6 mmol/L (3.3-5.1); Sodium 141 mmol/L (135-145); Total Protein 6.2 g/dL (6.5-8.0)
[2023-07-31 08:18] VITALS: BP 114/79; PULSE 64; RESP 16; TEMP 36.8; O2SAT 99
[2023-07-31 09:37] LABS: Amphetamine Screen Urine Not Detected (Not Detect); Barbiturates, Urine Not Detected (Not Detect); Benzodiazepines Screen Urine Not Detected (Not Detect); Buprenorphine Scr Not Detected (Not Detect); Cannabinoid Screen Urine Not Detected (Not Detect); Cocaine Screen Urine POSITIVE (Not Detect); Fentanyl, urine Not Detected (Not Detect); Methadone Screen, Urine Not Detected (Not Detect); Opiate Screen Urine Not Detected (Not Detect); Oxycodone Screen Urine Not Detected (Not Detect); Phencyclidine Screen Urine POSITIVE (Not Detect)
--- NOTE | 2023-07-31 10:38 | PC.NURSE ---
patient ambulated off of unit with steady gait
== END 2023-07-31 10:38 | disposition home or self-care (01) ==
PROVIDERS: Emergency Provider Emergency Medicine; PCP Internal Medicine
DX: F19.10 Other psychoactive substance abuse, uncomplicated (principal); R47.81 Slurred speech; Z04.1 Encounter for examination and observation following transport accident
CPT/HCPCS: 36415; 70450; 72125; 80048; 80076; 80307; 85025; 99283; 99284

== ENCOUNTER 2023-08-27 02:09 | Emergency (ER) | payer MEDICAID, SELFPAY ==
[2023-08-27 02:15] VITALS: BP 130/90; PULSE 82; RESP 16; TEMP 36.9; O2SAT 97; BMI 17.8
[2023-08-27 06:40] VITALS: BP 131/88; PULSE 72; RESP 16; TEMP 36.6; O2SAT 97
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
[2023-08-27 08:06] VITALS: BP 140/82; PULSE 69; RESP 16; TEMP 36.3; O2SAT 100
[2023-08-27 08:08] VITALS: BP 140/82; PULSE 69; RESP 16; TEMP 36.3; O2SAT 100
== END 2023-08-27 08:08 | disposition home or self-care (01) ==
PROVIDERS: Emergency Provider Emergency Medicine; PCP Internal Medicine
DX: H57.89 Other specified disorders of eye and adnexa (principal)
CPT/HCPCS: 99282; 99283

== ENCOUNTER 2023-10-29 08:48 | Emergency (ER) | payer MEDICAID, SELFPAY ==
--- NOTE | ~2023-10-29 | XR_ITS ---
EXAMINATION: XR FOREARM, RIGHT CLINICAL INFORMATION: Rule out foreign body near elbow COMPARISON: Right elbow 07/13/2023 TECHNIQUE: AP and lateral views of the right forearm were obtained. FINDINGS: On the AP view only, there is a 1.5 mm radiopacity seen overlying the distal radius about 3.3 cm from its and. It did not appreciate this on the lateral radiograph. There is also a faint linear 1 mm opacity seen in subcutaneous tissues medially at the level of the elbow joint which is only seen on the AP radiograph. Comparison is made to the 07/13/2023 exam, there are similar appearing opacities seen The bones and soft tissues are otherwise normal. No fracture. XR/XR forearm RT 2V IMPRESSION: Question of foreign body in the soft tissues as described above similar to 07/13/2023. If clinically indicated, CT scan could be performed for further evaluation. Electronically signed by: Maury Hermosillo MD 10/29/2023 11:22 AM EDT
[2023-10-29 08:54] VITALS: BP 99/69; PULSE 58; RESP 16; TEMP 36.8; O2SAT 97; BMI 19.0
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
--- NOTE | 2023-10-29 12:01 | PC.NURSE ---
upon discharge, patient requesting help getting into detox programs
== END 2023-10-29 13:34 | disposition home or self-care (01) ==
PROVIDERS: Emergency Provider Emergency Medicine Emergency Medical Services
DX: S60.511A Abrasion of right hand, initial encounter (principal); V18.0XXA Pedal cycle driver injured in noncollision transport accident in nontraffic accident, initial encounter; Y93.55 Activity, bike riding; Y92.414 Local residential or business street as the place of occurrence of the external cause; Y99.9 Unspecified external cause status
CPT/HCPCS: 73090; 99281; 99283